=== PATIENT | female | born 1950 | race Caucasian/White ===

== ENCOUNTER 2016-02-26 10:13 | Inpatient (IN) | payer OTHER ==
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
[2016-02-21 09:57] VITALS: BMI 22.3
[2016-02-26] MEDS ORDERED: ceFAZolin SODIUM 1 GM VIAL ONE (11:30)
[2016-02-26] MEDS ORDERED: GENTAMICIN SO4 80 MG/2 ML VIAL ONE (11:30)
[2016-02-26] MEDS ORDERED: PNEUMOC 13-VAL CONJ-DIP CRM/PF 0.5 ML DISP.SYRIN IM ONE (11:42)
[2016-02-26] MEDS ORDERED: INFLUENZA VACCINE 45 MCG/0.5 ML (MDV 16-17) IM ONE (11:43)
[2016-02-26] MEDS ORDERED: ISOSULFAN BLUE 10 MG/ML VIAL SQ ONE (12:02)
[2016-02-26] MEDS ORDERED: PROPOFOL 20 ML ONE ×2 (13:30)
[2016-02-26] MEDS ORDERED: MIDAZOLAM HCL 2 MG/2 ML SINGLE DOSE VIAL ONE ×2 (13:30→13:35)
[2016-02-26] MEDS ORDERED: ROCURONIUM BROMIDE 50 MG/5 ML VIAL ONE (13:31)
[2016-02-26] MEDS ORDERED: BUPIVACAINE HCL/PF 0.5% (5MG/ML) 10 ML VIAL ONE ×2 (13:37→13:42)
[2016-02-26] MEDS ORDERED: DEXAMETHASONE SOD PHOSPHATE/PF 10 MG/ML SDV ONE (13:44)
[2016-02-26] MEDS ORDERED: ePHEDrine SULFATE 50 MG/1 ML AMPULE ONE (14:34)
[2016-02-26] MEDS ORDERED: LACTATED RINGERS SOLUTION 1,000 ML IV SCH (14:45)
[2016-02-26] MEDS ORDERED: HYDROmorphone *PCA* 10MG/50ML DISP.SYRIN PCA SCH (14:45)
[2016-02-26] MEDS ORDERED: PROMETHAZINE HCL 25 MG/1 ML VIAL IVPUSH PRN (14:49)
[2016-02-26] MEDS ORDERED: ONDANSETRON 4 MG/2 ML VIAL IVPUSH PRN (14:50)
[2016-02-26] MEDS ORDERED: HYDROmorphone HCL/PF 1 MG/ML VIAL (FOR PYXIS CHARGING ONLY) ONE (14:56)
[2016-02-26] MEDS ORDERED: ONDANSETRON 4 MG/2 ML VIAL IVPB PRN (15:47)
[2016-02-26] MEDS ORDERED: ACETAMINOPHEN 325 MG TABLET (FP) PO PRN (15:47)
[2016-02-26] MEDS ORDERED: ZOLPIDEM TARTRATE 5 MG TABLET PO PRN (15:47)
[2016-02-26] MEDS ORDERED: DEXTROSE 5%-0.45% SALINE 1,000 ML IV SCH (16:00)
[2016-02-26] MEDS ORDERED: GLIMEPIRIDE 4 MG TABLET (FP) PO SCH (16:30)
[2016-02-26] MEDS ORDERED: ONDANSETRON 4 MG/2 ML VIAL ONE (17:03)
--- NOTE | 2016-02-26 18:05 | PN ---
Progress Note (short form) - Note Progress Note: VSS AF No collections Dressngs CDI plan is for ambulation tonight Incentive spirometer
[2016-02-26] MEDS ORDERED: HYDROmorphone *PCA* 10MG/50ML DISP.SYRIN PCA ONE (18:08)
[2016-02-26] MEDS: INSULIN (NOVOLOG) ASPART 100 UNITS/ML 10ML VIAL SQ ONE ×2 (18:15→20:30)
[2016-02-26] MEDS ORDERED: INSULIN (NOVOLOG) ASPART 100 UNITS/ML 10ML VIAL SQ ONE (18:30)
--- NOTE | 2016-02-26 18:37 | OP ---
DATE OF OPERATION: 02/26/2016 PREOPERATIVE DIAGNOSIS: Right breast cancer. POSTOPERATIVE DIAGNOSIS: Right breast cancer. PROCEDURE: Right modified radical mastectomy with sentinel node biopsy. ANESTHESIA: General intubated. ATTENDING SURGEON: Agatha Tsang M.D. CREDIT RATING INSPECTOR: Carroll Milner ESTIMATED BLOOD LOSS: 150 mL. COMPLICATIONS: None. PROCEDURE: Patient was made aware of the risks and benefits of the procedure and consented. She was placed in the supine position and after general anesthesia was induced, the patient was intubated. 3.0 mL of 1% isosulfan blue were locally infiltrated into the peritumoral tissues of the right breast, after site was prepped and draped in the usual sterile fashion, waiting approximately 10 minutes with gentle manual compression. A curvilinear incision was made in the right axilla. Using blunt and sharp dissection, tissues were dissected down, where a cluster of blue lymph nodes were identified and surgically excised. Frozen section report is 1 lymph node showed evidence of metastasis. An oval incision was made around the nipple using electrocautery. Skin flaps were made superior to the clavicle, medial to the sternum, lateral to latissimus dorsi, inferior to inframammary fold. Breast tissue was taken off the pectoralis muscle, extended laterally to the latissimus dorsi. Breast was then submitted with short suture superior, long suture lateral. The field was then dissected. The fascia was divided, exposing the axillary vein along the chest wall. The long thoracic nerve was identified and retracted medially. Laterally the thoracodorsal nerve was identified and retracted laterally, and the tissues between the two were bluntly and sharply dissected free with hemoclips on nerves and vessels. This was submitted as axillary contents. Palpation of the rest of the axilla revealed no suspicious lymph nodes and especially in level 3. The procedure was then turned over to Dr. Philippe Landrum, who did an produce specialist implant reconstruction. He will dictate his portion of the procedure separately. AGATHA TSANG M.D. [id number]
[2016-02-26] MEDS ORDERED: SODIUM CHLORIDE 1,000 ML IV STA (20:24)
--- NOTE | 2016-02-26 20:35 | ED.PROV ---
Physicial Exam - Vital Signs Last Vital Signs Temp Pulse Resp BP Pulse Ox 98.9 F 127 H 13 128/60 99 02/26/16 19:25 02/26/16 19:25 02/26/16 19:25 02/26/16 19:25 02/26/16 19:25 Critical Care Time/MDM Note - Medical Decision Making Note: 02/26/16 20:28 Called to see patient because of Tachycardia- Patient had mastectomy earlier today. Patient has no complaints except for rib pain where she had the mastectomy. EKG shows a pre-excitation syndrome delta wave- but looks like sinus tach to me. Other post surgical parameters explored with nursing staff. Duplex of lower extremities is negative for DVT. Spoke with Dr. Landrum ----> Ordered CBC, CHEMISTRIES, CTA CHEST, and one liter of NS IV Bolus. He is aware of all of the above.
[2016-02-26 20:48] LABS: MCH 24.8 pg (25.7-33.7); MCHC 32.3 g/dl (32.0-36.0); MEAN CELL VOLUME 76.6 fl (80-96); MEAN PLT VOLUME 8.6 fl (7.5-11.1); PLATELET COUNT 350 K/MM3 (134-434); RDW 17.5 % (11.6-15.6)
[2016-02-26 21:02] LABS: ALBUMIN 3.9 g/dl (3.5-5.0); ALK PHOS 124 U/L (32-92); ANION GAP 7 (8-16); BILIRUBIN,TOTAL 0.4 mg/dl (0.2-1.0); CALCIUM 8.8 mg/dl (8.4-10.2); CO2 21 mmol/L (22-28); CREATININE 0.6 mg/dl (0.6-1.3); GLUCOSE,RANDOM 275 mg/dl (74-106); TOT PROT 7.8 g/dl (6.4-8.3)
--- NOTE | 2016-02-26 21:33 | CONSULT ---
Consultation: REQUESTING PROVIDER: Dr. Landrum CONSULT REQUEST: We have been asked to medically evaluate this patient for tachycardia and DM. HISTORY OF PRESENT ILLNESS: This is a 65 year old female with a past medical history of HTN, DM, depression , appendectomy, cholecystectomy, , tonsilletomy, placenta previa who presented today for R mastectomy with sentinal node biopsy d/t Breast cancer. As per nursing forklift supervisor, pt was noted to be tachycardic during the procedure which has persisted throughout her recovery despite fluid resuscitation. Received 3L IVF as per PACU nurse and has 4th running at present as per orders from ED MD who came to evaluate the patient as well. Pt is groggy, but arousable and answers questions. C/o pain right ribs and chest surgical areas. Denies other chest pain, abdominal pain, N/V/D. 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 \ social history: smoke: 1ppd, quit 2 days ago drink: special occasions only drugs: pt denies Family history: father , prostate CA mother , heart problem sister with osteoporosis daughter denies any family history of uterine or ovarian CA, states mother had gotten confused when asked previously. Home medications: glimepiride 8mg QD glucophage 1000mg BID tradjenta 5mg QD Restoril 15mg HS Citalopram 10mg QD Avapro 150mg QD MVI REVIEW OF SYSTEMS: CONSTITUTIONAL: Absent: fever, chills, diaphoresis, generalized weakness, malaise, loss of appetite, weight change HEENT: Absent: rhinorrhea, nasal congestion, throat pain, throat swelling, difficulty swallowing, mouth swelling, ear pain, eye pain, visual changes CARDIOVASCULAR: present: tachycardia, right sided incisional chest pain, right lower rib pain Absent: chest pain, syncope, palpitations, irregular heart rate, lightheadedness , peripheral edema RESPIRATORY: Absent: cough, shortness of breath, dyspnea with exertion, orthopnea, wheezing, stridor, hemoptysis GASTROINTESTINAL: Absent: abdominal pain, abdominal distension, nausea, vomiting, diarrhea, constipation, melena, hematochezia GENITOURINARY: Absent: dysuria, frequency, urgency, hesitancy, hematuria, flank pain, genital pain MUSCULOSKELETAL: Absent: myalgia, arthralgia, joint swelling, back pain, neck pain SKIN: Absent: rash, itching, pallor HEMATOLOGIC/IMMUNOLOGIC: Absent: easy bleeding, easy bruising, lymphadenopathy, frequent infections ENDOCRINE: Absent: unexplained weight gain, unexplained weight loss, heat intolerance, cold intolerance NEUROLOGIC: Absent: headache, focal weakness or paresthesias, dizziness, unsteady gait, seizure, mental status changes, bladder or bowel incontinence PSYCHIATRIC: Absent: anxiety, depression, suicidal or homicidal ideation, hallucinations. PHYSICAL EXAMINATION Vital Signs - 24 hr 3 02/26/16 02/26/16 02/26/16 11:21 17:35 17:40 Temperature 98.4 F 98.9 F Pulse Rate 96 H 137 H 132 H Respiratory 18 16 16 Rate Blood Pressure 109/81 121/69 120/67 O2 Sat by Pulse 96 97 98 Oximetry (%) 02/26/16 02/26/16 02/26/16 17:45 17:50 17:55 Temperature 98.9 F Pulse Rate 131 H 134 H 131 H Respiratory 14 13 13 Rate Blood Pressure 118/62 123/74 109/70 O2 Sat by Pulse 99 100 99 Oximetry (%) 02/26/16 02/26/16 02/26/16 18:10 18:25 18:40 Temperature Pulse Rate 138 H 127 H 128 H Respiratory 12 13 14 Rate Blood Pressure 122/72 109/65 106/64 O2 Sat by Pulse 99 99 99 Oximetry (%) 02/26/16 02/26/16 02/26/16 18:55 19:10 19:25 Temperature 98.9 F 98.9 F Pulse Rate 124 H 126 H 127 H Respiratory 14 13 13 Rate Blood Pressure 111/62 109/69 128/60 O2 Sat by Pulse 100 98 99 Oximetry (%) 02/26/16 02/26/16 02/26/16 19:30 19:45 20:00 Temperature Pulse Rate 128 H 129 H 129 H Respiratory 14 15 14 Rate Blood Pressure 108/60 106/73 116/65 O2 Sat by Pulse 100 100 100 Oximetry (%) 02/26/16 02/26/16 02/26/16 20:15 20:30 20:45 Temperature Pulse Rate 130 H 124 H 126 H Respiratory 12 14 14 Rate Blood Pressure 107/67 109/71 105/66 O2 Sat by Pulse 98 100 100 Oximetry (%) 3 02/26/16 02/26/16 02/26/16 21:00 21:15 21:30 Temperature 98.9 F Pulse Rate 125 H 125 H 125 H Respiratory 14 14 14 Rate Blood Pressure 101/59 107/66 109/70 O2 Sat by Pulse 100 100 100 Oximetry (%) GENERAL: Awake, alert, and fully oriented, in no acute distress. HEAD: Normal with no signs of trauma. EYES: Pupils equal, round and reactive to light, extraocular movements intact, sclera anicteric, conjunctiva clear. No lid lag. EARS, NOSE, THROAT: Ears normal, nares patent, oropharynx clear without exudates. Moist mucous membranes. NECK: Normal range of motion, supple without lymphadenopathy, JVD, or masses. LUNGS: Breath sounds equal, clear to auscultation bilaterally. No wheezes, and no crackles. No accessory muscle use. HEART: Regular rate and rhythm, normal S1 and S2 without murmur, rub or gallop. ABDOMEN: Soft, nontender, not distended, normoactive bowel sounds, no guarding, no rebound, no masses. No hepatomegaly or splenomegaly. MUSCULOSKELETAL: Normal range of motion at all joints. No bony deformities or tenderness. No CVA tenderness. UPPER EXTREMITIES: 2+ pulses, warm, well-perfused. No cyanosis. No clubbing. Cap refill <2 seconds. No peripheral edema. LOWER EXTREMITIES: 2+ pulses, warm, well-perfused. No calf tenderness. No peripheral edema. NEUROLOGICAL: Cranial nerves II-XII intact. Normal speech. Normal gait. PSYCHIATRIC: Cooperative. Good eye contact. Appropriate mood and affect. SKIN: Warm, dry, normal turgor, no rashes or lesions noted. Laboratory Results - last 24 hr 3 02/26/16 02/26/16 02/26/16 11:47 17:58 19:43 WBC RBC Hgb Hct MCV MCHC RDW Plt Count MPV Sodium Potassium Chloride Carbon Dioxide Anion Gap BUN Creatinine Creat Clearance w eGFR POC Glucometer 145 282 260 Random Glucose Calcium Total Bilirubin AST ALT Alkaline Phosphatase Total Protein Albumin Active Medications 3 Generic Name Dose Route Start Last Admin Trade Name Freq PRN Reason Stop Dose Admin Acetaminophen 650 mg 02/26/16 15:47 Tylenol - PO Q4H PRN FEVER Alprazolam 0.5 mg 02/27/16 10:00 Xanax - PO DAILY [facility] Citalopram Hydrobromide 20 mg 02/27/16 10:00 Celexa - PO DAILY [facility] Fentanyl 50 mcg 02/26/16 14:43 Sublimaze Injection - IVPUSH 02/29/16 14:44 [id number] PRN PAIN Ferrous Gluconate 324 mg 02/27/16 10:00 Fergon - PO DAILY [facility] Glimepiride 4 mg 02/26/16 16:30 Amaryl - PO ACDIN [facility] Heparin Sodium (Porcine) 5,000 unit 02/27/16 10:00 Heparin - SQ BID [facility] Hydromorphone HCl 10 mg 02/26/16 14:45 Dilaudid Premises Technician - MOLDING LINE OPERATOR 03/04/16 14:44 MOLDING LINE OPERATOR [facility] Protocol Cefazolin Sodium 50 mls @ 100 mls/hr 02/26/16 21:00 Ancef 1 Gm Premixed Ivpb - IVPB 03/04/16 20:59 Q6H-IV [facility] Influenza Virus Vaccine 45 mcg 02/26/16 11:43 Fluvirin IM 02/26/16 11:44 .ONCE ONE Insulin Aspart 1 vial 02/26/16 22:00 Novolog Vial Sliding Scale - SQ ACHS [facility] Protocol Losartan Potassium 50 mg 02/27/16 10:00 Cozaar - PO DAILY [facility] Ondansetron HCl 4 mg 02/26/16 15:47 Zofran Injection IVPB Q6H PRN NAUSEA AND/OR VOMITING Pantoprazole Sodium 20 mg 02/27/16 10:00 Protonix - PO DAILY [facility] Pneumococcal 13-Valent Conj Vacc 0.5 ml 02/26/16 11:42 Prevnar 13 Syringe - IM 02/26/16 11:43 .ONCE ONE Zolpidem Tartrate 5 mg 02/26/16 15:47 Ambien - PO HS PRN Insomnia ECG: sinus tachy, rate 139, nonspecific St/T wave changes. no acute ANJALI/STD ASSESSMENT/PLAN: 65yF with PMH HTN, DM, Depression who is s/p mastectomy today, being evaluated for tachycardia and elevated BS. Sinus tachycardia - Will obtain CTA to r/o PE, B/L Doppler negative - stat labs ordered - NS 1L bolus ordered and in progress. Diabetes - hold po metformin, pt going for CT with contrast - FSBS q4h with sliding scale novolog, decrease to TIDAC when alert and eating and FSBS improved. HTN - hold avapro for now as BP low Depression - cont lexapro DVT PPX - cont heparin 5000u BID as ordered FEN - NS liter infusing, then reassess - labs now - NPO except meds and ice chips. Dispo: We will continue to follow the patient. Thank you for this consultative opportunity. Addendum: 1030PM Labs received: Laboratory Results - last 24 hr 3 02/26/16 02/26/16 20:40 20:40 WBC 20.0 H D RBC 4.27 Hgb 10.6 L Hct 32.7 MCV 76.6 L MCHC 32.3 RDW 17.5 H Plt Count 350 MPV 8.6 Sodium 131 L Potassium 3.9 Chloride 103 Carbon Dioxide 21 L Anion Gap 7 L BUN 14 Creatinine 0.6 D Creat Clearance w eGFR > 60 POC Glucometer Random Glucose 275 H D Calcium 8.8 Total Bilirubin 0.4 AST 584 H D ALT 380 H D Alkaline Phosphatase 124 H D Total Protein 7.8 Albumin 3.9 Discussed lab results with Dr. Landrum (surgeon) and Dr. Mendoza (ED physician) . Significant elevation of LFTs from preop labs on 02/20: AST 22, ALT 44, Alk Phos 80. Will obtain stat abdominal sono with doppler. GI consult in AM. Dressing removed from R chest area: no obvious hematoma or active bleeding. Incision right chest with ecchymosis, but no significant induration. Incision right axilla C/D/I, no iduration. Still awaiting CT chest results. Urine output 150 since DC from OR. Total urine output 350 including output during surgery. Urine color now human performance technologist blue/green. HR down to 116. WBC postop is 20. unclear etiology, reactive vs brewing infectious process. Afebrile, cont to monitor for now Will repeat all labs now and lactic acid, CK/trop. Visit type - Emergency Visit Emergency Visit: Yes ED Registration Date: 02/26/16 Care time: The patient presented to the Emergency Department on the above date and was hospitalized for further evaluation of their emergent condition. - New Patient This patient is new to me today: Yes Date on this admission: 02/26/16 - Critical Care Critical Care patient: No
[2016-02-26 21:48] LABS: SGOT/AST 584 U/L (10-42)
[2016-02-26 21:49] LABS: SGPT/ALT 380 U/L (10-40)
[2016-02-26] MEDS ORDERED: INSULIN SLIDING SCALE (NOVOLOG) 1 VIAL SQ SCH (22:00)
[2016-02-26] MEDS ORDERED: SODIUM CHLORIDE 1,000 ML IV SCH (23:15)
[2016-02-26 23:28] LABS: BASOPHIL 3.1 % (0-2.0); MCH 24.2 pg (25.7-33.7); MCHC 31.3 g/dl (32.0-36.0); MEAN CELL VOLUME 77.4 fl (80-96); MEAN PLT VOLUME 8.7 fl (7.5-11.1); NEUTROPHILS 88.9 % (42.8-82.8); PLATELET COUNT 316 K/MM3 (134-434); RDW 17.2 % (11.6-15.6); WHITE BLOOD COUNT 17.2 K/mm3 (4.0-10.0)
[2016-02-26 23:40] LABS: ALBUMIN 3.5 g/dl (3.5-5.0); ALK PHOS 108 U/L (32-92); ANION GAP 5 (8-16); BILIRUBIN,TOTAL 0.4 mg/dl (0.2-1.0); CALCIUM 8.1 mg/dl (8.4-10.2); CO2 22 mmol/L (22-28); CREATININE 0.5 mg/dl (0.6-1.3); GLUCOSE,RANDOM 217 mg/dl (74-106); MAGNESIUM 1.5 mg/dL (1.8-2.4); PHOSPHOROUS 5.1 mg/dl (2.5-4.6); SGPT/ALT 330 U/L (10-40)
[2016-02-26 23:40] LABS: CPK(DFH) 620 IU/L (26-140)
[2016-02-26 23:53] LABS: SGOT/AST 420 U/L (10-42)
[2016-02-26 23:56] LABS: CK MB 3.9 ng/ml (0.3-4.0); TROPONIN I (DFP) < 0.03 ng/ml (0.03-0.50)
[2016-02-27] MEDS ORDERED: INSULIN SLIDING SCALE (NOVOLOG) 1 VIAL SQ SCH
[2016-02-27] MEDS ORDERED: SODIUM CHLORIDE 1,000 ML IV STA ×2 (01:15→12:48)
[2016-02-27] MEDS: CEFAZOLIN 1 GM/D5W 50 ML IVPB SCH ×4 (02:14→21:42)
[2016-02-27] MEDS ORDERED: SODIUM CHLORIDE 250 ML IV STA ×2 (06:24→12:48)
--- NOTE | 2016-02-27 07:33 | PN ---
Physical Exam: SUBJECTIVE: Patient seen and examined, patient reports pain to surgical site. patient denies any chest pain or shortness of breath. OBJECTIVE: This is a 65 year old female with a past medical history of HTN, DM, depression, appendectomy, cholecystectomy, , tonsilletomy, placenta previa who presented today for R mastectomy with sentinal node biopsy d/t Breast cancer. Patient developed tachycardia and hypotension on post operative day 1 Vital Signs Period Temp Pulse Resp BP Sys/Issa Pulse Ox Last 24 Hr 98.1 F-98.9 F 76-138 12-19 84-128/50-81 96-100 GENERAL: The patient is lethargic, arousable to voice, fully oriented HEAD: Normal with no signs of trauma. EYES: PERRL, extraocular movements intact, sclera anicteric, conjunctiva clear. No ptosis. ENT: Ears normal, nares patent, oropharynx clear without exudates, moist mucous membranes. NECK: Trachea midline, full range of motion, supple. LUNGS: Breath sounds equal, clear to auscultation bilaterally, no wheezes, no crackles, no accessory muscle use. HEART: Regular rate and rhythm, S1, S2 systolic 2/6 murmur no rub or gallop. CHEST: binder in place, IRVNIG 1, JP2 both draining serrous sangenous fluid, surgical sites, well approximated, no drainage noted, minimal erythema ABDOMEN: Soft, nontender, nondistended, normoactive bowel sounds, no guarding, no rebound, no hepatosplenomegaly, no masses, EXTREMITIES: 2+ pulses, warm, well-perfused, no edema. NEUROLOGICAL: Cranial nerves II through XII grossly intact. Normal speech, gait not observed. PSYCH: Normal mood, normal affect. SKIN: Warm, dry, normal turgor, no rashes or lesions noted Laboratory Results - last 24 hr 02/26/16 02/26/16 02/26/16 11:47 17:58 19:43 WBC RBC Hgb Hct MCV MCHC RDW Plt Count MPV Neutrophils % Lymphocytes % Monocytes % Eosinophils % Basophils % Sodium Potassium Chloride Carbon Dioxide Anion Gap BUN Creatinine Creat Clearance w eGFR POC Glucometer 145 282 260 Random Glucose Lactic Acid Calcium Phosphorus Magnesium Total Bilirubin AST ALT Alkaline Phosphatase Creatine Kinase CK-MB (CK-2) Troponin I Total Protein Albumin 02/26/16 02/26/16 02/26/16 20:40 20:40 22:37 WBC 20.0 H D RBC 4.27 Hgb 10.6 L Hct 32.7 MCV 76.6 L MCHC 32.3 RDW 17.5 H Plt Count 350 MPV 8.6 Neutrophils % Lymphocytes % Monocytes % Eosinophils % Basophils % Sodium 131 L 131 L Potassium 3.9 4.3 Chloride 103 104 Carbon Dioxide 21 L 22 Anion Gap 7 L 5 L BUN 14 13 Creatinine 0.6 D 0.5 L Creat Clearance w eGFR > 60 > 60 POC Glucometer Random Glucose 275 H D 217 H D Lactic Acid Calcium 8.8 8.1 L Phosphorus 5.1 H Magnesium 1.5 L Total Bilirubin 0.4 0.4 AST 584 H D 420 H D ALT 380 H D 330 H Alkaline Phosphatase 124 H D 108 H Creatine Kinase CK-MB (CK-2) Troponin I Total Protein 7.8 7.0 Albumin 3.9 3.5 02/26/16 02/26/16 02/26/16 23:15 23:15 23:15 WBC 17.2 H RBC 3.91 Hgb 9.5 L D Hct 30.2 L MCV 77.4 L MCHC 31.3 L RDW 17.2 H Plt Count 316 MPV 8.7 Neutrophils % 88.9 H Lymphocytes % 3.4 L Monocytes % 4.6 Eosinophils % 0.0 Basophils % 3.1 H Sodium Potassium Chloride Carbon Dioxide Anion Gap BUN Creatinine Creat Clearance w eGFR POC Glucometer Random Glucose Lactic Acid 3.003 H* Calcium Phosphorus Magnesium Total Bilirubin AST ALT Alkaline Phosphatase Creatine Kinase 620 H CK-MB (CK-2) 3.9 Troponin I < 0.03 L Total Protein Albumin 02/27/16 02/27/16 00:14 04:03 WBC RBC Hgb Hct MCV MCHC RDW Plt Count MPV Neutrophils % Lymphocytes % Monocytes % Eosinophils % Basophils % Sodium Potassium Chloride Carbon Dioxide Anion Gap BUN Creatinine Creat Clearance w eGFR POC Glucometer 231 200 Random Glucose Lactic Acid Calcium Phosphorus Magnesium Total Bilirubin AST ALT Alkaline Phosphatase Creatine Kinase CK-MB (CK-2) Troponin I Total Protein Albumin Active Medications Generic Name Dose Route Start Last Admin Trade Name Freq PRN Reason Stop Dose Admin Citalopram Hydrobromide 20 mg 02/27/16 10:00 Celexa - PO DAILY [facility] Fentanyl 50 mcg 02/26/16 14:43 Sublimaze Injection - IVPUSH 02/29/16 14:44 [id number] PRN PAIN Ferrous Gluconate 324 mg 02/27/16 10:00 Fergon - PO DAILY [facility] Heparin Sodium (Porcine) 5,000 unit 02/27/16 10:00 Heparin - SQ BID [facility] Hydromorphone HCl 10 mg 02/26/16 14:45 Dilaudid Metal Bonding Helper - SHOE CLERK 03/04/16 14:44 SHOE CLERK [facility] Protocol Cefazolin Sodium 50 mls @ 100 mls/hr 02/26/16 21:00 02/27/16 02:14 Ancef 1 Gm Premixed Ivpb - IVPB 03/04/16 20:59 100 mls/hr Q6H-IV [facility] Administration Sodium Chloride 1,000 mls @ 125 mls/hr 02/26/16 23:15 02/26/16 23:40 Normal Saline - IV 125 mls/hr ASDIR [facility] Administration Influenza Virus Vaccine 45 mcg 02/26/16 11:43 Fluvirin IM 02/26/16 11:44 .ONCE ONE Insulin Aspart 1 vial 02/27/16 00:00 02/27/16 02:19 Novolog Vial Sliding Scale - SQ 3 units Q4H [facility] Administration Protocol Losartan Potassium 50 mg 02/27/16 10:00 Cozaar - PO DAILY [facility] Ondansetron HCl 4 mg 02/26/16 15:47 Zofran Injection IVPB Q6H PRN NAUSEA AND/OR VOMITING Pantoprazole Sodium 20 mg 02/27/16 10:00 Protonix - PO DAILY [facility] Pneumococcal 13-Valent Conj Vacc 0.5 ml 02/26/16 11:42 Prevnar 13 Syringe - IM 02/26/16 11:43 .ONCE ONE Zolpidem Tartrate 5 mg 02/26/16 15:47 Ambien - PO HS PRN Insomnia IMAGING CTA of chest: no PE, mild lung emphysema with bibasilar atelaectatic changes, left pleural effusion ASSESSMENT/PLAN: 1) cardiology: hypotension - ED Physician, Dr Coley called and at bedside, for TLC placement, 1 liter of NS ordered, Dr Cervantes contacted, pt accepted to ICU. - repeat cxr pulmonary vascular congestion, ECHO ordered, pending BNP - recommend cardiology input 2) heme: microcytic anemia - hgb 8, pending am labs, recommend transfusion if hgb 7 or less leukocytosis - pt afebrile monitor wbc, follow up blood and urine culture - continue cefazolin 3) endo - finger sticks achs, with regular insulin coverage 4) GI - transanimitis noted, benign abdominal exam, LFTS trending downward - ultrasound of abd no acute pathology noted - pending hepatitis panel f/e/n - low sodium diet - IVF ppx heparin scd/[place] dispo: requires Inpatient ICU thank you for this consultative opportunity. Visit type - Emergency Visit Emergency Visit: No - New Patient This patient is new to me today: Yes Date on this admission: 02/27/16 - Critical Care Critical Care patient: Yes Total Critical Care Time (in minutes): 60 Critical Care Statement: The care of this patient involved high complexity decision making to prevent further life threatening deterioration of the patient 's condition and/or to evalute & treat vital organ system(s) failure or risk of failure. - Discharge Referral Referred to [facility] Med P.C.: No
--- NOTE | 2016-02-27 08:04 | PN ---
Progress Note (short form) - Note Progress Note: POD 1 patient developed persistent tachycardia without hypoxia or tachypnea or chest pain Patient was given 4 L saline overnight with adequate UOP ruled out for [place], no ischemic changes on CT ruled out for PE and DVT Transaminase elevation: liver sono nl, bili normal, s/p cholecystectomy Exam: no hematoma, all tissues viable, no collection, no infection, IRVING's thin and functioning well Abd soft and benign lungs CTA Plan for continued fluid recussitation and monitor UOP Central line Transfer to ICU, cardiology consult, consider swan catheter continue to monitor labs
[2016-02-27 08:16] LABS: TROPONIN I < 0.02 ng/ml (0.00-0.05)
--- NOTE | 2016-02-27 09:10 | PDOC ---
[id number] 97 02/27/16 06:00 02/27/16 06:00 02/27/16 06:00 02/27/16 06:00 02/27/16 02:07 ED Treatment Course - LABORATORY CBC & Chemistry Diagram: 02/27/16 16:00 02/27/16 06:45 - ADDITIONAL ORDERS Additional order review: Laboratory Results 02/27/16 02/27/16 02/27/16 06:45 06:45 06:45 Sodium Potassium Chloride Carbon Dioxide Anion Gap BUN Creatinine Creat Clearance w eGFR POC Glucometer Random Glucose Lactic Acid 1.397 Calcium Phosphorus Magnesium Total Bilirubin AST ALT Alkaline Phosphatase Creatine Kinase Cancelled 672 H D CK-MB (CK-2) 6.931 H Troponin I Cancelled < 0.02 Total Protein Albumin 02/27/16 02/27/16 02/26/16 04:03 00:14 23:15 Sodium Potassium Chloride Carbon Dioxide Anion Gap BUN Creatinine Creat Clearance w eGFR POC Glucometer 200 231 Random Glucose Lactic Acid Calcium Phosphorus Magnesium Total Bilirubin AST ALT Alkaline Phosphatase Creatine Kinase 620 H CK-MB (CK-2) 3.9 Troponin I < 0.03 L Total Protein Albumin 02/26/16 02/26/16 02/26/16 23:15 22:37 20:40 Sodium 131 L 131 L Potassium 4.3 3.9 Chloride 104 103 Carbon Dioxide 22 21 L Anion Gap 5 L 7 L BUN 13 14 Creatinine 0.5 L 0.6 D Creat Clearance w eGFR > 60 > 60 POC Glucometer Random Glucose 217 H D 275 H D Lactic Acid 3.003 H* Calcium 8.1 L 8.8 Phosphorus 5.1 H Magnesium 1.5 L Total Bilirubin 0.4 0.4 AST 420 H D 584 H D ALT 330 H 380 H D Alkaline Phosphatase 108 H 124 H D Creatine Kinase CK-MB (CK-2) Troponin I Total Protein 7.0 7.8 Albumin 3.5 3.9 02/27/16 02/27/16 02/26/16 04:03 00:14 23:15 RBC 3.91 MCV 77.4 L MCHC 31.3 L RDW 17.2 H MPV 8.7 Neutrophils % 88.9 H Lymphocytes % 3.4 L Monocytes % 4.6 Eosinophils % 0.0 Basophils % 3.1 H POC Glucometer 200 231 0102/26/16 02/26/16 20:40 19:43 17:58 RBC 4.27 MCV 76.6 L MCHC 32.3 RDW 17.5 H MPV 8.6 Neutrophils % Lymphocytes % Monocytes % Eosinophils % Basophils % POC Glucometer 260 282 02/26/16 11:47 RBC MCV MCHC RDW MPV Neutrophils % Lymphocytes % Monocytes % Eosinophils % Basophils % POC Glucometer 145 - Medications Given in the ED: ED Medications Discontinued Medications Generic Name Dose Route Start Last Admin Trade Name Freq PRN Reason Stop Dose Admin Sodium Chloride 1,000 mls @ 500 mls/hr 02/27/16 01:15 02/27/16 01:30 Normal Saline - IV 02/27/16 03:14 500 mls/hr ASDIR STA Administration *DC/Admit/Observation/Transfer Diagnosis at time of Disposition: Breast cancer, right breast Qualifiers: Breast location: overlapping sites of breast Patient gender: female Qualified Code(s): C50.811 - Malignant neoplasm of overlapping sites of right female breast Procedures - Central Line Central Line Lumen: triple Central Line Position: internal jugular (R) Anesthesia: 1% Lidocaine Amount of anesthesia (ccs): 3 Complications: none Post Central Line Insertion: sutured, good blood return, position confirmed w/ CXR (Indication: vasopressor use. Vascular ultrasound used for central line placement. Patient tolerated procedure well.)
[2016-02-27 09:17] LABS: BASOPHIL 0.3 % (0-2.0); MCH 23.9 pg (25.7-33.7); MCHC 30.8 g/dl (32.0-36.0); MEAN CELL VOLUME 77.6 fl (80-96); MEAN PLT VOLUME 9.6 fl (7.5-11.1); NEUTROPHILS 75.5 % (42.8-82.8); PLATELET COUNT 241 K/MM3 (134-434); RDW 17.5 % (11.6-15.6); WHITE BLOOD COUNT 13.9 K/mm3 (4.0-10.0)
--- NOTE | 2016-02-27 09:17 | PN ---
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 Patient received approx 4 liters of fluid with adequate urinary output. Patient had a negative workup for PE and liver scan was done for increasing LFTs. Her cxr is c/w pulmonary congestion. A central line was placed. Otherwise, patient has good pain control and is not in any distress. - Current Medication List Current Medications: Active Medications Citalopram Hydrobromide (Celexa -) 20 mg PO DAILY [facility] Fentanyl (Sublimaze Injection -) 50 mcg IVPUSH [id number] PRN PRN Reason: PAIN Stop: 02/29/16 14:44 Ferrous Gluconate (Fergon -) 324 mg PO DAILY [facility] Heparin Sodium (Porcine) (Heparin -) 5,000 unit SQ BID [facility] Cefazolin Sodium (Ancef 1 Gm Premixed Ivpb -) 50 mls @ 100 mls/hr IVPB Q6H-IV [facility] Stop: 03/04/16 20:59 Last Admin: 02/27/16 08:56 Dose: 100 mls/hr Sodium Chloride (Normal Saline -) 1,000 mls @ 125 mls/hr IV ASDIR AUGIE Last Admin: 02/26/16 23:40 Dose: 125 mls/hr Insulin Aspart (Novolog Vial Sliding Scale -) 1 vial SQ Q4H [facility] PRN Reason: Protocol Last Admin: 02/27/16 02:19 Dose: 3 units Ondansetron HCl (Zofran Injection) 4 mg IVPB Q6H PRN PRN Reason: NAUSEA AND/OR VOMITING Pantoprazole Sodium (Protonix -) 20 mg PO DAILY [facility] Zolpidem Tartrate (Ambien -) 5 mg PO HS PRN PRN Reason: Insomnia - Objective Vital Signs: Vital Signs Temperature 98.1 F 02/27/16 06:00 Pulse Rate 76 02/27/16 06:00 Respiratory Rate 19 02/27/16 06:00 Blood Pressure 84/50 02/27/16 06:00 O2 Sat by Pulse Oximetry (%) 97 02/27/16 02:07 Constitutional: Yes: Calm Breast(s): Yes: Other (Flap with good color. No evidence of active bleeding noted in the JPs.) Problem List - Problems (1) Breast cancer, right breast Code(s): C50.911 - MALIGNANT NEOPLASM OF UNSP SITE OF RIGHT FEMALE BREAST Qualifiers: Breast location: overlapping sites of breast Patient gender: female Qualified Code(s): C50.811 - Malignant neoplasm of overlapping sites of right female breast Assessment/Plan Patient to be transferred to ICU as discussed with Dr. Tsang and Dr. Landrum. Medical and cardiology consult requested Cardiac echo to be done Monitor LFTs and WBC Will follow Case also discussed with Dr. Gordon
[2016-02-27 09:23] LABS: INR 1.21 (0.82-1.09); PROTHROMBIN TIME (PATIENT) 13.2 SEC (10.2-13.0)
[2016-02-27 09:36] LABS: MAGNESIUM 1.7 mg/dL (1.8-2.4)
[2016-02-27] MEDS ORDERED: ALPRAZolam 0.25 MG TABLET PO SCH (10:00)
[2016-02-27] MEDS ORDERED: CITALOPRAM HYDROBROMIDE 20 MG TABLET (FP) PO SCH (10:00)
[2016-02-27] MEDS ORDERED: PANTOPRAZOLE 20 MG TABLET (FP) PO SCH (10:00)
[2016-02-27] MEDS ORDERED: HEPARIN NA (PORCINE) 5,000 UNITS/ML 1ML VIAL SQ SCH (10:00)
[2016-02-27] MEDS ORDERED: FERROUS GLUCONATE 324 MG TAB (FP) PO SCH (10:00)
[2016-02-27] MEDS ORDERED: LOSARTAN POTASSIUM 50 MG TABLET (FP) PO SCH (10:00)
[2016-02-27 11:02] LABS: ALBUMIN 2.9 g/dl (3.4-5.0); ALK PHOS 109 U/L (45-117); ANION GAP 8 (8-16); BILIRUBIN,TOTAL 0.3 mg/dL (0.2-1.0); CALCIUM 7.8 mg/dL (8.5-10.1); CO2 22 mmol/L (21-32); CREATININE 0.5 mg/dL (0.55-1.02); GLUCOSE,RANDOM 116 mg/dL (74-106); SGOT/AST 252 U/L (15-37); SGPT/ALT 298 U/L (12-78); TOT PROT 6.5 g/dl (6.4-8.2)
[2016-02-27] MEDS ORDERED: OXYCODONE/APAP 5/325MG COMBO TABLET PO PRN (11:45)
[2016-02-27] MEDS ORDERED: morphine CARPU-JECT 2 MG/1 ML DISP.SYRIN IVPUSH ONE ×2 (12:00→12:48)
--- NOTE | 2016-02-27 12:28 | PN ---
Teaching Attending Note Name of Resident: De Knight ATTENDING PHYSICIAN STATEMENT I saw and evaluated the patient. I reviewed the resident's note and discussed the case with the resident. I agree with the resident's findings and plan as documented. SUBJECTIVE: Pt seen and examined in the ICU. Briefly, pt is a 65yo female with h/o HTN, DM, depression, breast ca s/p right modified radical mastectomy done on 02/25. No reported complications, EBL 150mL. This AM noted to be hypotensive, tachycardic with altered mental status. CTA chest done without evidence of PE. No fevers, chills or sweats. Received 2L LR intra op, 6L post op so far. IRVING drainage serosanguinous. Denies shortness of breath or chest pain, c/o surgical site pain. OBJECTIVE: Last Vital Signs Temp Pulse Resp BP Pulse Ox 98 F 75 18 82/56 94 L 02/27/16 10:00 02/27/16 11:14 02/27/16 10:00 02/27/16 10:00 02/27/16 11:14 Intake & Output 02/24/16 02/25/16 02/26/16 02/27/16 23:59 23:59 23:59 23:59 Intake Total 4000 2425 Output Total 490 870 Balance 3510 1555 Weight 130 lb Gen: mildly tachypneic at rest Heart: RRR Lung: scattered rhonchi Chest: IRVING x 2 with serosanguinous drainage Abd: soft, nontender Ext: no edema CBC, BMP 02/27/16 08:15 02/27/16 06:45 CXR: pulmonary vascular congestion Active Medications Acetaminophen (Tylenol -) 325 mg PO Q4H PRN PRN Reason: PAIN Stop: 03/01/16 11:46 Citalopram Hydrobromide (Celexa -) 20 mg PO DAILY [facility] Ferrous Gluconate (Fergon -) 324 mg PO DAILY [facility] Cefazolin Sodium (Ancef 1 Gm Premixed Ivpb -) 50 mls @ 100 mls/hr IVPB Q6H-IV [facility] Stop: 03/04/16 20:59 Last Admin: 02/27/16 08:56 Dose: 100 mls/hr Sodium Chloride (Normal Saline -) 1,000 mls @ 125 mls/hr IV ASDIR AUGIE Last Admin: 02/26/16 23:40 Dose: 125 mls/hr Insulin Aspart (Novolog Vial Sliding Scale -) 1 vial SQ ACHS [facility] PRN Reason: Protocol Ondansetron HCl (Zofran Injection) 4 mg IVPB Q6H PRN PRN Reason: NAUSEA AND/OR VOMITING Oxycodone HCl (Roxicodone -) 5 mg PO Q4H PRN PRN Reason: PAIN Pantoprazole Sodium (Protonix -) 20 mg PO DAILY [facility] Zolpidem Tartrate (Ambien -) 5 mg PO HS PRN PRN Reason: Insomnia ASSESSMENT AND PLAN: Breast Ca s/p R Modified Radical Mastectomy POD #1 Shock - ?Septic vs Hemorrhagic/Hypovolemic Lactic Acidosis Elevated LFTs - ?ischemic injury Anemia HTN DM - CVP 11-12 so preload adequate - echocardiogram to evaluate LVEF, RVSP - on antibiotics - send blood, urine cultures - transfuse 1 unit PRBC - monitor H/H - trend LFTs - monitor IRVING drainage - pain control - incentive spirometry - monitor CXR - PO as tolerated - DVT prophylaxis, hold heparin for now - continue ICU monitoring
[2016-02-27] MEDS ORDERED: INSULIN (NOVOLOG) ASPART 100 UNITS/ML 10ML VIAL SQ ONE (12:48)
[2016-02-27] MEDS ORDERED: SODIUM CHLORIDE 1,000 ML IV SCH (12:48)
[2016-02-27 13:22] LABS: URINE APPEARANCE CLEAR; URINE BILIRUBIN NEGATIVE (NEGATIVE); URINE BLOOD NEGATIVE (NEGATIVE); URINE COLOR GREEN; URINE GLUCOSE (UA) NEGATIVE (NEGATIVE); URINE KETONE NEGATIVE (NEGATIVE); URINE LEUK ESTERASE NEGATIVE (NEGATIVE); URINE NITRITE NEGATIVE (NEGATIVE); URINE PROTEIN NEGATIVE (NEGATIVE); URINE UROBILINOGEN NEGATIVE E.U./dl (0.2-1.0)
--- NOTE | 2016-02-27 13:22 | CONSULT ---
Consult Consult Specialty:: ICU Referred by:: Breast Surgery service Reason for Consultation:: POST OP HYPOENSION - History of Present Illness Chief Complaint: hypotension post op History of Present Illness: 65 yo female with PMH of HTN DM GERD anxiety/depression Breast CA POD #1 s/p Right MRM with SLNB presents to the ICU from [place] after she was noted to be hypotensive and tachycardic post op with associated altered mental status. In october she was noted to have a palpable mass and right nipple retraction. Per charts patient underwent a mammography and US which was positive for a 1.5 cm irregular mass and retroareolar dilation. Patient underwent a core bx on 11/2015 that was c/w invasive ductal carcinoma and DCIS. ER and TN positive. Her 2 negative. MRI was c/w known cancer at 11 oclock, inverted nipple and suspicious intramammary lymph nodes. She was noted to be hypotensive and tachycardic on POD #1 and there was a concern for PE. A CTA of the chest was done without evidence of PE. She denies nausea vomiting fevers chills chest pain or shortness of breath. Received 2L LR intra op, 6L post op so far. EBL 150ml IRVING drainage serosanguinous. She currently complains of righ chest pain over wound. - History Source History Provided By: Patient, Medical Record Limitations to Obtaining History: Language Barrier - Past Medical History Cardio/Vascular: Yes: HTN Gastrointestinal: Yes: GERD ...: No Heme/Onc: Yes: Anemia, Cancer (breast CA ) Psych: Yes: Anxiety, Depression Endocrine: Yes: Diabetes Mellitus - Past Surgical History Past Surgical History: Yes: Appendectomy, Cholecystectomy, , Tonsillectomy - Alcohol/Substance Use Hx Alcohol Use: No - Smoking History Smoking history: Current every day smoker Have you smoked in the past 12 months: Yes Aproximately how many cigarettes per day: 20 Home Medications - Allergies Allergies/Adverse Reactions: Allergies Allergy/AdvReac Type Severity Reaction Status Date / Time No Known Allergies Allergy Verified 02/21/16 09:57 - Home Medications Home Medications: Ambulatory Orders Alprazolam 0.5 mg PO DAILY 09/28/12 Ferrous Gluconate [Fergon] 324 mg PO DAILY 09/28/12 Irbesartan [Avapro (Nf)] 150 mg PO DAILY 09/28/12 Omeprazole [Prilosec (RX)] 20 mg PO DAILY 09/28/12 Citalopram Hydrobromide [Citalopram HBr] 20 mg PO DAILY 02/21/16 Glimepiride [Amaryl -] 4 mg PO HS 02/21/16 Metformin HCl 425 mg PO HS 02/21/16 Multivitamins [Tab-A-Vit -] 1 tab PO DAILY 02/21/16 Family Disease History - Family Disease History Family Disease History: CA: Father (prostate cancer), Mother (uterine vs ovarian cancer), Sister (ovarian cancer) Review of Systems - Review of Systems Constitutional: reports: No Symptoms Eyes: reports: No Symptoms HENT: reports: No Symptoms Neck: reports: No Symptoms Cardiovascular: reports: No Symptoms Respiratory: reports: No Symptoms Gastrointestinal: reports: No Symptoms Genitourinary: reports: No Symptoms Breasts: reports: See HPI Musculoskeletal: reports: No Symptoms Integumentary: reports: Incision Neurological: reports: Confusion (post op) Endocrine: reports: No Symptoms Hematology/Lymphatic: reports: Other (anemia) Psychiatric: reports: Anxiety, Depression Physical Exam Vital Signs: Vital Signs Temperature 98 F 02/27/16 10:00 Pulse Rate 75 02/27/16 11:14 Respiratory Rate 18 02/27/16 10:00 Blood Pressure 82/56 02/27/16 10:00 O2 Sat by Pulse Oximetry (%) 94 L 02/27/16 11:14 Constitutional: Yes: Well Nourished, No Distress Eyes: Yes: Conjunctiva Clear HENT: Yes: Atraumatic Neck: Yes: Supple Cardiovascular: Yes: Regular Rate and Rhythm Respiratory: Yes: Other (LEft sided crackles right side clear) Gastrointestinal: Yes: WNL, Normal Bowel Sounds, Soft Extremities: Yes: Other (right finger amputated contracted right hand) Edema: No Wound/Incision: Yes: Other (POD#1 right breast MRM will defer taking down the dressing to surgery as it is a fresh wound and may not be ready for a dressing change JPx2 serosangenous) Neurological: Yes: Alert Labs: CBC, BMP 02/27/16 08:15 02/27/16 06:45 Imaging - Results Chest X-ray: Report Reviewed, Image Reviewed Cat Scan: Report Reviewed, Image Reviewed Ultrasound: Report Reviewed, Image Reviewed Assessment/Plan 65yF with PMH HTN, DM, Depression who is s/p mastectomy today, being evaluated for tachycardia and elevated BS. Sinus tachycardia with hypotension There may be an underlying infectious process going on vs anemia and less likely hypovolemia Patient seems to be adequately fluid resuscitated Good UOP Underlying cause currently under investigation could be secondary to anemia as Hb is 7.4 will give one unit PRBC and recheck Hb BCx x 1 pending from central line could not get peripheral stick will do UA/UCx Will do ECHO Recheck CXR in AM Hold IVF as her lungs are getting crackles likely from large amount of fluid resusciation may need pressors for support-patient has central line Transaminitis: likely from shock liver secondary to hypotension as patient likely has a higher baseline to maintain perfusion to organs US ABD shows fatty liver outpt follow up with GI Anemia: transfuse 1 unit PRBCs recheck CBC Breast CA s/p MRM POD # 1 continue ABx pain control with percocet Diabetes ISS fingersticks ACHS no metformin for 48hours s/p CTA HTN currently hypotensive hold home BP meds Depressio/anxiety/insomnia joanapro shine PPx: HSQ Protonix PT consult FEN CVP 11-12 no fluids needed at this time bolus PRN replete magnesium low sodium/diabetic diet CCT 60min
[2016-02-27] MEDS: oxyCODONE HCL 5 MG TABLET PO PRN ×3 (13:35→23:52)
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
[2016-02-27] MEDS ORDERED: MAGNESIUM SULF 50% (8.12 MEQ/2 ML-1 GM VIAL) IVPB ONE (15:02)
[2016-02-27 16:31] LABS: MCH 24.5 pg (25.7-33.7); MCHC 30.7 g/dl (32.0-36.0); MEAN CELL VOLUME 79.8 fl (80-96); PLATELET COUNT 209 K/MM3 (134-434); RDW 18.1 % (11.6-15.6); WHITE BLOOD COUNT 11.1 K/mm3 (4.0-10.0)
[2016-02-27] MEDS: INSULIN SLIDING SCALE (NOVOLOG) 1 VIAL SQ SCH ×2 (16:50→21:55)
[2016-02-27] MEDS: ACETAMINOPHEN 325 MG TABLET (FP) PO PRN ×2 (17:15→23:53)
[2016-02-27] MEDS ORDERED: HYDROmorphone HCL CARPU-JECT 1 MG/1 ML DISP.SYRIN IVPUSH ONE (19:34)
[2016-02-27] MEDS ORDERED: ZOLPIDEM TARTRATE 5 MG TABLET PO PRN (22:00)
[2016-02-28] MEDS ORDERED: HYDROmorphone HCL CARPU-JECT 1 MG/1 ML DISP.SYRIN IVPUSH ONE (01:03)
[2016-02-28] MEDS ORDERED: HYDROmorphone HCL CARPU-JECT 1 MG/1 ML DISP.SYRIN ONE (01:04)
[2016-02-28] MEDS: CEFAZOLIN 1 GM/D5W 50 ML IVPB SCH ×4 (02:18→21:02)
[2016-02-28] MEDS: ACETAMINOPHEN 325 MG TABLET (FP) PO PRN ×4 (06:16→19:28)
[2016-02-28] MEDS: oxyCODONE HCL 5 MG TABLET PO PRN ×3 (06:17→19:24)
[2016-02-28] MEDS: INSULIN SLIDING SCALE (NOVOLOG) 1 VIAL SQ SCH ×3 (06:18→21:03)
[2016-02-28 07:51] LABS: MCH 25.5 pg (25.7-33.7); MCHC 32.6 g/dl (32.0-36.0); MEAN CELL VOLUME 78.2 fl (80-96); MEAN PLT VOLUME 9.1 fl (7.5-11.1); PLATELET COUNT 230 K/MM3 (134-434); RDW 17.7 % (11.6-15.6); WHITE BLOOD COUNT 11.9 K/mm3 (4.0-10.0)
[2016-02-28 08:13] LABS: ALBUMIN 2.9 g/dl (3.4-5.0); ALK PHOS 155 U/L (45-117); ANION GAP 10 (8-16); BILIRUBIN,TOTAL 0.5 mg/dL (0.2-1.0); CALCIUM 8.4 mg/dL (8.5-10.1); CO2 25 mmol/L (21-32); CREATININE 0.4 mg/dL (0.55-1.02); GLUCOSE,RANDOM 185 mg/dL (74-106); SGOT/AST 226 U/L (15-37); SGPT/ALT 299 U/L (12-78); TOT PROT 6.5 g/dl (6.4-8.2)
--- NOTE | 2016-02-28 08:20 | PN ---
Progress Note (short form) - Note Progress Note: Patient seen and examined with nurse present. Nurse reports patient continued to complain of pain throughout the night. Patient is complaining of headache for which she received Tylenol 325 mg. Nurse reports patient has not been tachycardic, BP has been WNL, and patient continued to make large amount of urine throughout the night. Patient is getting OOB to chair. Denies SOB/CP/ dizziness. Last Vital Signs Temp Pulse Resp BP Pulse Ox 97.8 F 92 H 16 107/70 97 02/28/16 06:00 02/28/16 08:00 02/28/16 08:00 02/28/16 08:00 02/27/16 21:00 CBC, BMP 02/28/16 06:20 H&H improved from 8.2/26.7 yesterday afternoon CMP pending Urine output 2400ml recorded over 8 hours IRVING's 10 and 35 ml PE: Gen: NAD Right chest surgical site soft, no evidence of hematoma, tissues viable, without erythema or drainage, IRVING drains with serosanguineous drainage Problem List - Problems (1) Breast cancer, right breast Assessment/Plan: POD#1 s/p right modified radical mastectomy and sentinel node bx with reconstruction, with post-op tachycardia and hypotension Improved H&H, good urine output, no tachycardia overnight Monitor labs, urine output, IRVING drains Pain control Code(s): C50.911 - MALIGNANT NEOPLASM OF UNSP SITE OF RIGHT FEMALE BREAST Qualifiers: Breast location: overlapping sites of breast Patient gender: female Qualified Code(s): C50.811 - Malignant neoplasm of overlapping sites of right female breast
--- NOTE | 2016-02-28 09:11 | PN ---
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 Patient states that she feels better than yesterday but reports headaches. Otherwise the patient reports minimal discomfort at the surgical site. - Current Medication List Current Medications: Active Medications Acetaminophen (Tylenol -) 650 mg PO Q4H PRN PRN Reason: FEVER OR PAIN Citalopram Hydrobromide (Celexa -) 20 mg PO DAILY [facility] Ferrous Gluconate (Fergon -) 324 mg PO DAILY [facility] Cefazolin Sodium (Ancef 1 Gm Premixed Ivpb -) 50 mls @ 100 mls/hr IVPB Q6H-IV [facility] Stop: 03/04/16 20:59 Last Admin: 02/28/16 02:18 Dose: 100 mls/hr Insulin Aspart (Novolog Vial Sliding Scale -) 1 vial SQ ACHS [facility] PRN Reason: Protocol Last Admin: 02/28/16 06:18 Dose: 4 units Oxycodone HCl (Roxicodone -) 5 mg PO Q4H PRN PRN Reason: PAIN Last Admin: 02/28/16 06:17 Dose: 5 mg Zolpidem Tartrate (Ambien -) 5 mg PO HS PRN PRN Reason: Insomnia - Objective Vital Signs: Vital Signs Temperature 97.8 F 02/28/16 06:00 Pulse Rate 92 H 02/28/16 08:00 Respiratory Rate 16 02/28/16 08:00 Blood Pressure 107/70 02/28/16 08:00 O2 Sat by Pulse Oximetry (%) 97 02/27/16 21:00 Constitutional: Yes: Well Nourished, Calm Breast(s): Yes: Other (Right flap is warm with good color. Steristrips intact without drainage or erythema. IRVING with serosanginous discharge. No swelling noted.) Labs: CBC, BMP 02/28/16 06:20 02/28/16 06:20 INR, PTT INR 1.21 (0.82-1.09) 02/27/16 08:15 Problem List - Problems (1) Breast cancer, right breast Code(s): C50.911 - MALIGNANT NEOPLASM OF UNSP SITE OF RIGHT FEMALE BREAST Qualifiers: Breast location: overlapping sites of breast Patient gender: female Qualified Code(s): C50.811 - Malignant neoplasm of overlapping sites of right female breast Assessment/Plan Plan: Followup today's labs. Follow echocardiogram results Will discuss further management with Dr. Tsang and ICU doctors.
[2016-02-28] MEDS ORDERED: PT OWN MED DRAWER 7, Y5N ONE ×2 (09:24→20:55)
[2016-02-28] MEDS ORDERED: CITALOPRAM HYDROBROMIDE 20 MG TABLET (FP) PO SCH (10:00)
[2016-02-28] MEDS ORDERED: FERROUS GLUCONATE 324 MG TAB (FP) PO SCH (10:00)
--- NOTE | 2016-02-28 10:33 | OP ---
DATE OF OPERATION: 02/26/2016 TITLE OF PROCEDURE: Right breast reconstruction with tissue shoe parts molder, right breast placement of acellular dermal matrix allograft, separate right chest wall 4-cm complex wound closure at separate axillary wound site, and left breast excision of 1-cm benign lesion with 2-cm primary layered closure. The procedure was performed in combination with a right-sided mastectomy and right-sided axillary lymph node dissection. ATTENDING SURGEON: Philippe Terry MD PREOPERATIVE DIAGNOSIS: Right-sided breast cancer with left breast benign skin lesion of the areola. DESCRIPTION OF PROCEDURE: The patient was marked in the holding area, bilateral inframammary folds. The lesion on the left breast was marked for excision. The risks, benefits and alternatives to the procedure were discussed with the patient. She understood and agreed to proceed. She was brought to the operating room. She was positioned, prepped and draped by Dr. Tsang and his team, after which a Le catheter was placed. A gram of Ancef was given preoperatively. Sequential compression stockings and MAYANK hose were applied. I was not present until I scrubbed in after the mastectomy. At this point, hemostasis was meticulously achieved. The wound was copiously irrigated with triple antibiotic solution. Triple antibiotic solution in this case is 80 mg of gentamicin, 1 g of Ancef and 50,000 units of bacitracin in a liter of normal saline. After this was completed, a muscular pocket was developed first by developing a subpectoral pocket to the level of the sternal attachments. The inferior costal attachments are divided. A lateral serratus muscle flap is then elevated along the chest wall, leaving the intercostal muscular intact. Inferiorly, the rectus sheath is elevated to cover the inferior pole of the implant. The inframammary fold is then marked on the chest wall. A tissue shoe parts molder is brought into the field. It is evacuated of all air. It is rinsed in triple antibiotic solution. The tissue shoe parts molder used is a Floral style [id number] implant rated for a total fill volume of 550 mL, with a base width of 12 cm. The implant is oriented and the muscular pocket is closed with a running 3-0 PDS suture. Inferomedially there is a small area of the tissue shoe parts molder which is not able to be closed and appears to be a submuscular pocket. For this, the acellular dermal matrix was brought into the field. Alloderm brand matrix is used. It is rinsed with triple antibiotic solution, oriented properly, cut go accommodate the exposed area. It is sewn to the free edges of the pocket with a running 3-0 PDS suture. The wound was then copiously irrigated with triple antibiotic solution once again. Hemostasis is once again meticulously reachieved, with thorough exploration of the entire wound. Two flat IRVING drains were then brought out through lateral stab wound incisions and secured with 2-0 silk sutures. The skin was then prepared for closure by excising the distal 2 mm of skin on either side of the wound. The deep fatty capsular tissue of the mastectomy wound was closed with running locking 3-0 Monocryl suture. The dermis was approximated with a running locking buried dermal 3-0 Monocryl suture, and the skin was then approximated with a running subcuticular 3-0 Monocryl suture. Attention was then directed toward the axilla, where a 4-cm wound that had been made for the axillary dissection was separately closed. Zane layer fascia was closed with a running 3-0 Monocryl suture. The dermis was closed with a series of interrupted buried deep dermal 3-0 Monocryl suture, and the skin was closed with a running subcuticular 3-0 Monocryl suture. Attention was then directed toward the contralateral left breast, where an excision of the pedunculated lesion at the superior border of the areola was performed. This was a 1-cm lesion, elliptically excised as a 2-cm defect. The defect was then closed with a series of interrupted buried dermal 4-0 Monocryl suture. The skin was then closed with a series of interrupted 5-0 nylon suture. All wounds were dressed with Steri-Strips. Drains were placed to bulb suction with minimal output. A breast binder was applied to the chest wall. There were no position changes during the case. She was awoken from anesthesia and transferred to the recovery room without complication. Please note that the weight of the resected breast on the right was 533 g. PHILIPPE TERRY M.D. [id number]
--- NOTE | 2016-02-28 10:37 | PN ---
Progress Note (short form) - Note Progress Note: s: no cp sob palps dizzy o: Vital Signs Period Temp Pulse Resp BP Sys/Issa Pulse Ox Last 24 Hr 97.5 F-99 F 75-96 12-21 87-128/52-73 94-98 NAD, calm JVD flat, neck supple cta bl nl eff RRR nl s1, s2 no m/r/g + bs soft nt nd ext without e/c/c no jaundice, diaphoresis. aaox3 Current Medications Generic Name Dose Route Start Last Admin Trade Name Freq PRN Reason Stop Dose Admin Acetaminophen 650 mg 02/28/16 10:15 02/28/16 09:29 Tylenol - PO 650 mg Q4H PRN Administration FEVER OR PAIN Citalopram Hydrobromide 20 mg 02/28/16 10:00 02/28/16 09:30 Celexa - PO 20 mg DAILY AUGIE Administration Ferrous Gluconate 324 mg 02/28/16 10:00 Fergon - PO DAILY AUGIE Cefazolin Sodium 50 mls @ 100 mls/hr 02/27/16 15:00 02/28/16 09:29 Ancef 1 Gm Premixed Ivpb - IVPB 03/04/16 20:59 100 mls/hr Q6H-IV AUGIE Administration Insulin Aspart 1 vial 02/27/16 16:30 02/28/16 06:18 Novolog Vial Sliding Scale - SQ 4 units ACHS AUGIE Administration Protocol Oxycodone HCl 5 mg 02/27/16 11:47 02/28/16 06:17 Roxicodone - PO 5 mg Q4H PRN Administration PAIN Zolpidem Tartrate 5 mg 02/27/16 22:00 Ambien - PO HS PRN Insomnia CBC, BMP 02/28/16 06:20 02/28/16 06:20 EKG: Sinus tach. Inferolateral t wave abnormalities, possible inferior q waves. T wave abnormalities similar to priors. tele: sr 02/26 cxr: patchy opacification of lung horner could be from pulmonary vascular congestion. 02/25 CTA: No PE, Mild emphysematous changes, bibasal atelectasis with minimal left pleural effusion. Can't rule out superimposed infiltrate vascular u/s: No dvt Abd u/s: fatty liver, mild prominence of biliary tree. echo 02/2016: nl lv/rv, mild tr, rvsp 40-50 65 yo smoker with h/o HTN, GERD, fatty liver DM, rt breast mass who presented for rt mastectomy 1/3 complicated by persistent tachycardia and subsequent hypotension. Tachycardia/hypotension - No evidence of arrhythmia. Now resolved s/p resuscitaiton. No evidence of active bleeding. Likely 2/2 volume shifts from surgery, now resolved. - tele and echo unremarkable - Monitor for signs of infection. HTN - anti-hypertensives held while hypotensive. POD 2: - Currently improved hr control and bp normalized s/p transfusion. Ongoing resuscitation needs per pmd. + tobacco with emphysematous changes on CT - cessation counseling.
--- NOTE | 2016-02-28 12:16 | PN ---
Teaching Attending Note Name of Resident: De Knight ATTENDING PHYSICIAN STATEMENT I saw and evaluated the patient. I reviewed the resident's note and discussed the case with the resident. I agree with the resident's findings and plan as documented. SUBJECTIVE: Pt seen and examined in the ICU. Blood pressures improved after PRBC transfusion. Denies shortness of breath or chest pain. No fevers recorded. OBJECTIVE: Last Vital Signs Temp Pulse Resp BP Pulse Ox 97.5 F L 88 21 128/65 96 02/28/16 10:00 02/28/16 10:04 02/28/16 10:00 02/28/16 10:00 02/28/16 10:04 Intake & Output 02/25/16 02/26/16 02/27/16 02/28/16 23:59 23:59 23:59 23:59 Intake Total 4000 3220 220 Output Total 490 2470 2445 Balance 3510 750 -2225 Weight 130 lb Gen: more alert, awake, NAD in chair Heart: RRR Lung: bibasilar rales R>L Abd: soft, nontender Ext: no edema CBC, BMP 02/28/16 06:20 02/28/16 06:20 Active Medications Acetaminophen (Tylenol -) 650 mg PO Q4H PRN PRN Reason: FEVER OR PAIN Last Admin: 02/28/16 09:29 Dose: 650 mg Citalopram Hydrobromide (Celexa -) 20 mg PO DAILY AUGIE Last Admin: 02/28/16 09:30 Dose: 20 mg Ferrous Gluconate (Fergon -) 324 mg PO DAILY [facility] Cefazolin Sodium (Ancef 1 Gm Premixed Ivpb -) 50 mls @ 100 mls/hr IVPB Q6H-IV [facility]UGIE Stop: 03/04/16 20:59 Last Admin: 02/28/16 09:29 Dose: 100 mls/hr Insulin Aspart (Novolog Vial Sliding Scale -) 1 vial SQ ACHS AUGIE PRN Reason: Protocol Last Admin: 02/28/16 11:16 Dose: 6 units Oxycodone HCl (Roxicodone -) 5 mg PO Q4H PRN PRN Reason: PAIN Last Admin: 02/28/16 06:17 Dose: 5 mg Zolpidem Tartrate (Ambien -) 5 mg PO HS PRN PRN Reason: Insomnia ASSESSMENT AND PLAN: Breast Ca s/p R Modified Radical Mastectomy POD #2 Shock - ?Hemorrhagic/Hypovolemic Lactic Acidosis resolved Elevated LFTs - ?ischemic injury vs congestive hepatopathy Pulmonary HTN Anemia HTN DM - on antibiotics - f/u blood, urine cultures - monitor H/H - trend LFTs - monitor IRVING drainage - pt appears to be auto-diuresing well, will hold off on lasix - pain control - incentive spirometry - monitor CXR - PO as tolerated - DVT prophylaxis, can resume heparin SQ - can monitor on surgical floor
--- NOTE | 2016-02-28 12:27 | PN ---
Progress Note, Physician History of Present Illness: feels well no hypotension or tachycardia - Current Medication List Current Medications: Active Medications Acetaminophen (Tylenol -) 650 mg PO Q4H PRN PRN Reason: FEVER OR PAIN Last Admin: 02/28/16 09:29 Dose: 650 mg Citalopram Hydrobromide (Celexa -) 20 mg PO DAILY [facility]UGIE Last Admin: 02/28/16 09:30 Dose: 20 mg Ferrous Gluconate (Fergon -) 324 mg PO DAILY [facility] Heparin Sodium (Porcine) (Heparin -) 5,000 unit SQ TID [facility] Cefazolin Sodium (Ancef 1 Gm Premixed Ivpb -) 50 mls @ 100 mls/hr IVPB Q6H-IV AUGIE Stop: 03/04/16 20:59 Last Admin: 02/28/16 09:29 Dose: 100 mls/hr Insulin Aspart (Novolog Vial Sliding Scale -) 1 vial SQ ACHS AUGIE PRN Reason: Protocol Last Admin: 02/28/16 11:16 Dose: 6 units Oxycodone HCl (Roxicodone -) 5 mg PO Q4H PRN PRN Reason: PAIN Last Admin: 02/28/16 06:17 Dose: 5 mg Zolpidem Tartrate (Ambien -) 5 mg PO HS PRN PRN Reason: Insomnia - Objective Vital Signs: Vital Signs Temperature 97.5 F L 02/28/16 10:00 Pulse Rate 88 02/28/16 10:04 Respiratory Rate 21 02/28/16 10:00 Blood Pressure 128/65 02/28/16 10:00 O2 Sat by Pulse Oximetry (%) 96 02/28/16 10:04 Constitutional: Yes: Well Nourished, No Distress Eyes: Yes: Conjunctiva Clear HENT: Yes: Atraumatic Neck: Yes: Supple Cardiovascular: Yes: Regular Rate and Rhythm Respiratory: Yes: Other (LEft sided crackles right side clear) Gastrointestinal: Yes: WNL, Normal Bowel Sounds, Soft Extremities: Yes: Other (right finger amputated contracted right hand) Edema: No Wound/Incision: Yes: Other (JPx2 serosangenous) Neurological: Yes: Alert Labs: CBC, BMP 02/28/16 06:20 02/28/16 06:20 INR, PTT INR 1.21 (0.82-1.09) 02/27/16 08:15 Assessment/Plan 65yF with PMH HTN, DM, Depression who is s/p mastectomy today, being evaluated for tachycardia and elevated BS. Sinus tachycardia with hypotension likely symptomatic anemia now resolved There may be an underlying infectious process going on vs anemia and less likely hypovolemia Patient seems to be adequately fluid resuscitated Good UOP Underlying cause currently under investigation s/p 1 unit PRBCs BCx x 1 pending from central line could not get peripheral stick-no growth so far UA/UCx-negative ECHo reviewed Recheck CXR in AM n may need pressors for support-patient has central line Transaminitis: no improvement likely from shock liver secondary to hypotension as patient likely has a higher baseline to maintain perfusion to organs US ABD shows fatty liver outpt follow up with GI Anemia: s/p 1 unit PRBCs appropriate respone recheck CBC Breast CA s/p MRM POD # 2 continue ABx pain control with percocet Diabetes ISS fingersticks ACHS no metformin for 48hours s/p CTA HTN currently hypotensive hold home BP meds Depressio/anxiety/insomnia joanapro shine PPx: HSQ SCDs Protonix PT consult FEN CVP 11-12 no fluids needed at this time bolus PRN replete magnesium low sodium/diabetic diet transfer to floor
[2016-02-28] MEDS ORDERED: HEPARIN NA (PORCINE) 5,000 UNITS/ML 1ML VIAL SQ SCH (14:00)
[2016-02-28] MEDS ORDERED: ZOLPIDEM TARTRATE 5 MG TABLET PO PRN ×2 (14:53→17:15)
[2016-02-28] MEDS ORDERED: ACETAMINOPHEN 325 MG TABLET (FP) PO PRN (14:53)
[2016-02-28] MEDS ORDERED: oxyCODONE HCL 5 MG TABLET PO PRN (14:53)
[2016-02-28] MEDS ORDERED: CEFAZOLIN 1 GM/D5W 50 ML IVPB SCH (15:00)
--- NOTE | 2016-02-28 15:48 | PN ---
Physical Exam: Subjective: Patient seen and examined in the ICU. She has some chest tenderness at incision sites. She denies HICKEY, dizziness, she would like to go home, at bedside. Events: low grade fever this afternoon Objective: Vital Signs Period Temp Pulse Resp BP Sys/Issa Pulse Ox Last 24 Hr 97.5 F-100.1 F 79-96 12-22 87-140/52-89 96-98 PE Neuro: alert, awake, cn 2-12intact HEENT: RIJ c/d/i Pulm: scattered basilar crackles, no wheezing CV: s1 s2 rrr no mrg Breast: bilateral mastectomy x2 IRVING drains serosanguinous fluids Abd: s nt nd +bs : martin, light green tinged Ext: R hand contracted, finger amputation CBCD WBC 11.9 K/mm3 (4.0-10.0) H 02/28/16 06:20 RBC 3.59 M/mm3 (3.60-5.2) L 02/28/16 06:20 Hgb 9.2 GM/dL (10.7-15.3) L D 02/28/16 06:20 Hct 28.1 % (32.4-45.2) L 02/28/16 06:20 MCV 78.2 fl (80-96) L 02/28/16 06:20 MCHC 32.6 g/dl (32.0-36.0) 02/28/16 06:20 RDW 17.7 % (11.6-15.6) H 02/28/16 06:20 Plt Count 230 K/MM3 (134-434) 02/28/16 06:20 MPV 9.1 fl (7.5-11.1) 02/28/16 06:20 CMP Sodium 140 mmol/L (136-145) 02/28/16 06:20 Potassium 3.7 mmol/L (3.5-5.1) 02/28/16 06:20 Chloride 105 mmol/L (98-107) 02/28/16 06:20 Carbon Dioxide 25 mmol/L (21-32) 02/28/16 06:20 Anion Gap 10 (8-16) 02/28/16 06:20 BUN 5 mg/dL (7-18) L D 02/28/16 06:20 Creatinine 0.4 mg/dL (0.55-1.02) L 02/28/16 06:20 Creat Clearance w eGFR > 60 (>60) 02/28/16 06:20 Calcium 8.4 mg/dL (8.5-10.1) L 02/28/16 06:20 Total Bilirubin 0.5 mg/dL (0.2-1.0) D 02/28/16 06:20 AST 226 U/L (15-37) H 02/28/16 06:20 ALT 299 U/L (12-78) H 02/28/16 06:20 Alkaline Phosphatase 155 U/L (45-117) H D 02/28/16 06:20 Total Protein 6.5 g/dl (6.4-8.2) 02/28/16 06:20 Albumin 2.9 g/dl (3.4-5.0) L 02/28/16 06:20 Active Medications Generic Name Dose Route Start Last Admin Trade Name Freq PRN Reason Stop Dose Admin Acetaminophen 650 mg 02/28/16 14:53 Tylenol - PO Q4H PRN FEVER OR PAIN Citalopram Hydrobromide 20 mg 02/29/16 10:00 Celexa - PO DAILY [facility] Ferrous Gluconate 324 mg 02/29/16 10:00 Fergon - PO DAILY [facility] Heparin Sodium (Porcine) 5,000 unit 02/28/16 14:00 02/28/16 13:45 Heparin - SQ 5,000 unit TID AUGIE Administration Cefazolin Sodium 50 mls @ 100 mls/hr 02/28/16 15:00 Ancef 1 Gm Premixed Ivpb - IVPB 03/04/16 20:59 Q6H-IV [facility] Insulin Aspart 1 vial 02/28/16 16:30 Novolog Vial Sliding Scale - SQ ACHS [facility] Protocol Oxycodone HCl 5 mg 02/28/16 14:53 Roxicodone - PO Q4H PRN PAIN Zolpidem Tartrate 5 mg 02/28/16 14:53 Ambien - PO HS PRN Insomnia Assessment: 65 year old female with pmhx of Breast cancer, HTN, DM II, GERD, depression/anxiety, s/p right modified radical mastectomy and sentinel node bx with reconstruction 02/25/15 transferred from [place] for hypotension and tachycardia. Plan: 1. Acute blood loss anemia - Secondary to surgery - Transfused 1uprbc 02/26 with appropriate rise - Monitor hgb - Cont ferrous gluconate 2. Shock ?hemorrhagic vs hypovolemic - Currently, stable s/p packed cells - Lactate wnl - s/p 7 L NS - ECHO noted nml lv size, function, filling, RVSP 40-50mmhg - Maintain martin, stable uop, maintain until clear yellow 3. Breast ca s/p right modified radical mastectomy and sentinel node bx with reconstruction 02/25/15 - Core bx 01/08 shows invasive ductal carcinoma, DISC, ER [place] postive, Her 2 negative - Maintain IRVING drains - Cont cefazolin 1gm q6 - Blood and urine cx negative - Surgery following 4. Tachycardia - Resolved - CTA negative for PE 5. Transaminitis - Shock liver? - Trend - US negative for acute pathology 6. DM II - Hold po antidiabetics - Start levemir 10units hs - ISS, BGM ACHS 7. Depression/anxiety - Lexapro - Ambien 8. DVT - Heparin sq Visit type - Emergency Visit Emergency Visit: Yes ED Registration Date: 02/26/16 Care time: The patient presented to the Emergency Department on the above date and was hospitalized for further evaluation of their emergent condition. - New Patient This patient is new to me today: Yes Date on this admission: 02/28/16 - Critical Care Critical Care patient: No
[2016-02-28] MEDS ORDERED: INSULIN SLIDING SCALE (NOVOLOG) 1 VIAL SQ SCH (16:30)
--- NOTE | 2016-02-28 18:06 | PN ---
Progress Note (short form) - Note Progress Note: Patient has recovered with normalized blood pressure and heart rate. Comfortable, tolerating PO Good UOP Surgical sites CDI with no infection or collection IRVING's thin and functioning Low grade fever 2/2 atelectasis Encouraged IS, ambulation Transfer to floor once bed is available. Will await further diuresis prior to discharge
[2016-02-28] MEDS ORDERED: HEPARIN NA (PORCINE) 5,000 UNITS/ML 1ML VIAL ONE (20:56)
[2016-02-28] MEDS: HEPARIN NA (PORCINE) 5,000 UNITS/ML 1ML VIAL SQ SCH (21:02)
[2016-02-28] MEDS ORDERED: INSULIN DETEMIR 100 UNITS/ML MDV SQ SCH (22:00)
[2016-02-29] MEDS: CEFAZOLIN 1 GM/D5W 50 ML IVPB SCH ×3 (03:00→14:25)
[2016-02-29] MEDS: oxyCODONE HCL 5 MG TABLET PO PRN ×3 (05:44→14:24)
[2016-02-29] MEDS: ACETAMINOPHEN 325 MG TABLET (FP) PO PRN ×3 (05:44→14:24)
[2016-02-29] MEDS: HEPARIN NA (PORCINE) 5,000 UNITS/ML 1ML VIAL SQ SCH ×2 (05:45→13:44)
[2016-02-29 06:06] LABS: MCH 24.7 pg (25.7-33.7); MCHC 31.7 g/dl (32.0-36.0); MEAN PLT VOLUME 9.1 fl (7.5-11.1); PLATELET COUNT 279 K/MM3 (134-434); RDW 18.2 % (11.6-15.6); WHITE BLOOD COUNT 8.8 K/mm3 (4.0-10.0)
[2016-02-29 06:38] LABS: ANION GAP 9 (8-16); CALCIUM 8.4 mg/dL (8.5-10.1); CO2 25 mmol/L (21-32); GLUCOSE,RANDOM 172 mg/dL (74-106)
[2016-02-29 06:40] LABS: ALK PHOS 200 U/L (45-117); BILIRUBIN,TOTAL 0.7 mg/dL (0.2-1.0); CREATININE 0.5 mg/dL (0.55-1.02); SGOT/AST 211 U/L (15-37); SGPT/ALT 269 U/L (12-78); TOT PROT 6.9 g/dl (6.4-8.2)
--- NOTE | 2016-02-29 08:42 | PN ---
Progress Note, Physician Chief Complaint: S/P right mastectomy, andx with reconstruction POD 3 History of Present Illness: Patient seen in the ICU. She is tolerating po well. She denies SOB or chest pain. Voiding well. - Current Medication List Current Medications: Active Medications Acetaminophen (Tylenol -) 650 mg PO Q4H PRN PRN Reason: FEVER OR PAIN Citalopram Hydrobromide (Celexa -) 20 mg PO DAILY [facility] Ferrous Gluconate (Fergon -) 324 mg PO DAILY [facility] Heparin Sodium (Porcine) (Heparin -) 5,000 unit SQ TID [facility] Last Admin: 02/29/16 05:45 Dose: 5,000 unit Cefazolin Sodium (Ancef 1 Gm Premixed Ivpb -) 50 mls @ 100 mls/hr IVPB Q6H-IV [facility] Stop: 03/04/16 20:59 Last Admin: 02/29/16 03:00 Dose: 100 mls/hr Insulin Aspart (Novolog Vial Sliding Scale -) 1 vial SQ ACHS AUGIE PRN Reason: Protocol Last Admin: 02/28/16 21:03 Dose: 4 units Insulin Detemir (Levemir Vial) 10 units SQ HS [facility] Last Admin: 02/28/16 21:02 Dose: 10 units Oxycodone HCl (Roxicodone -) 5 mg PO Q4H PRN PRN Reason: PAIN Last Admin: 02/29/16 05:44 Dose: 5 mg Zolpidem Tartrate (Ambien -) 5 mg PO HS PRN PRN Reason: Insomnia - Objective Vital Signs: Vital Signs Temperature 97.9 F 02/29/16 06:00 Pulse Rate 70 02/29/16 08:00 Respiratory Rate 18 02/29/16 08:00 Blood Pressure 97/57 02/29/16 08:00 O2 Sat by Pulse Oximetry (%) 97 02/28/16 21:00 Constitutional: Yes: Well Nourished, Calm Breast(s): Yes: Other (Right flap with good color. Steristrips intact without discharge or erythema. huan x 2 with serosanginous discharge.) Labs: CBC, BMP 02/29/16 05:15 02/29/16 05:15 INR, PTT INR 1.21 (0.82-1.09) 02/27/16 08:15 Problem List - Problems (1) Breast cancer, right breast Code(s): C50.911 - MALIGNANT NEOPLASM OF UNSP SITE OF RIGHT FEMALE BREAST Qualifiers: Breast location: overlapping sites of breast Patient gender: female Qualified Code(s): C50.811 - Malignant neoplasm of overlapping sites of right female breast Assessment/Plan Plan: Patient ready for discharge to the regular floor but awaiting bed availability. LFTs are elevated but decreasing. Will discuss further management with Dr. Tsang.
[2016-02-29] MEDS: INSULIN SLIDING SCALE (NOVOLOG) 1 VIAL SQ SCH ×2 (09:36→11:59)
[2016-02-29] MEDS ORDERED: FERROUS GLUCONATE 324 MG TAB (FP) PO SCH ×2 (10:00)
[2016-02-29] MEDS ORDERED: CITALOPRAM HYDROBROMIDE 20 MG TABLET (FP) PO SCH ×2 (10:00)
--- NOTE | 2016-02-29 11:27 | PN ---
Progress Note (short form) - Note Progress Note: s: no cp sob palps dizzy o: Vital Signs Period Temp Pulse Resp BP Sys/Issa Pulse Ox Last 24 Hr 97.8 F-100.1 F 70-92 17-28 97-140/52-89 96-97 NAD, calm JVD flat, neck supple cta bl nl eff RRR nl s1, s2 no m/r/g + bs soft nt nd ext without e/c/c no jaundice, diaphoresis. aaox3 Current Medications Generic Name Dose Route Start Last Admin Trade Name Freq PRN Reason Stop Dose Admin Acetaminophen 650 mg 02/29/16 05:33 02/29/16 09:50 Tylenol - PO 650 mg Q4H PRN Administration FEVER OR PAIN Citalopram Hydrobromide 20 mg 02/29/16 10:00 02/29/16 09:35 Celexa - PO 20 mg DAILY [facility] Administration Ferrous Gluconate 324 mg 02/29/16 10:00 02/29/16 09:35 Fergon - PO 324 mg DAILY [facility] Administration Heparin Sodium (Porcine) 5,000 unit 02/28/16 22:00 02/29/16 05:45 Heparin - SQ 5,000 unit TID AUGIE Administration Cefazolin Sodium 50 mls @ 100 mls/hr 02/28/16 21:00 02/29/16 08:52 Ancef 1 Gm Premixed Ivpb - IVPB 03/04/16 20:59 100 mls/hr Q6H-IV AUGIE Administration Insulin Aspart 1 vial 02/28/16 22:00 02/29/16 09:36 Novolog Vial Sliding Scale - SQ Not Given ACHS [facility] Protocol Insulin Detemir 10 units 02/28/16 22:00 02/28/16 21:02 Levemir Vial SQ 10 units HS [facility] Administration Oxycodone HCl 5 mg 02/28/16 17:15 02/29/16 09:51 Roxicodone - PO 5 mg Q4H PRN Administration PAIN Zolpidem Tartrate 5 mg 02/28/16 17:15 Ambien - PO HS PRN Insomnia CBC, BMP 02/29/16 05:15 02/29/16 05:15 EKG: Sinus tach. Inferolateral t wave abnormalities, possible inferior q waves. T wave abnormalities similar to priors. tele: sr, sinus tachy 1/3 CTA: No PE, Mild emphysematous changes, bibasal atelectasis with minimal left pleural effusion. Can't rule out superimposed infiltrate vascular u/s: No dvt Abd u/s: fatty liver, mild prominence of biliary tree. echo 02/2016: nl lv/rv, mild tr, rvsp 40-50 a/p: 65 yo smoker with h/o HTN, GERD, fatty liver DM, rt breast mass who presented for rt mastectomy 02/25 complicated by persistent tachycardia and subsequent hypotension. Tachycardia/hypotension - No evidence of arrhythmia. Now resolved s/p resuscitaiton. No evidence of active bleeding. Likely 2/2 volume shifts from surgery, now resolved. - tele and echo unremarkable - Monitor for signs of infection. HTN - anti-hypertensives held while hypotensive. POD 3: - Currently improved hr control and bp normalized s/p transfusion. Ongoing resuscitation needs per pmd. + tobacco with emphysematous changes on CT - cessation counseling. can [employer] tele
--- NOTE | 2016-02-29 11:51 | PN ---
Teaching Attending Note Name of Resident: De Knight ATTENDING PHYSICIAN STATEMENT I saw and evaluated the patient. I reviewed the resident's note and discussed the case with the resident. I agree with the resident's findings and plan as documented. SUBJECTIVE: Patient seen and examined in the ICU. Awake and alert. No CP or SOB. LFTs are improving. Intake & Output 02/26/16 02/27/16 02/28/16 02/29/16 23:59 23:59 23:59 23:59 Intake Total 4000 3220 820 970 Output Total 490 2470 4150 2260 Balance 3510 750 -3330 -1290 Weight 130 lb Last Vital Signs Temp Pulse Resp BP Pulse Ox 97.8 F 80 18 117/89 96 02/29/16 09:53 02/29/16 09:53 02/29/16 09:53 02/29/16 09:53 02/29/16 09:00 Active Medications Acetaminophen (Tylenol -) 650 mg PO Q4H PRN PRN Reason: FEVER OR PAIN Last Admin: 02/29/16 09:50 Dose: 650 mg Citalopram Hydrobromide (Celexa -) 20 mg PO DAILY [facility] Last Admin: 02/29/16 09:35 Dose: 20 mg Ferrous Gluconate (Fergon -) 324 mg PO DAILY [facility] Last Admin: 02/29/16 09:35 Dose: 324 mg Heparin Sodium (Porcine) (Heparin -) 5,000 unit SQ TID [facility] Last Admin: 02/29/16 05:45 Dose: 5,000 unit Cefazolin Sodium (Ancef 1 Gm Premixed Ivpb -) 50 mls @ 100 mls/hr IVPB Q6H-IV [facility] Stop: 03/04/16 20:59 Last Admin: 02/29/16 08:52 Dose: 100 mls/hr Insulin Aspart (Novolog Vial Sliding Scale -) 1 vial SQ ACHS [facility] PRN Reason: Protocol Last Admin: 02/29/16 09:36 Dose: Not Given Insulin Detemir (Levemir Vial) 10 units SQ HS [facility] Last Admin: 02/28/16 21:02 Dose: 10 units Oxycodone HCl (Roxicodone -) 5 mg PO Q4H PRN PRN Reason: PAIN Last Admin: 02/29/16 09:51 Dose: 5 mg Zolpidem Tartrate (Ambien -) 5 mg PO HS PRN PRN Reason: Insomnia Gen: Awake and alert, NAD Heart: RRR Lung: bibasilar rhonchi Left > Right Abd: soft, nontender Ext: no edema Laboratory Results - last 24 hr 02/28/16 02/28/16 02/28/16 11:12 17:01 20:28 WBC RBC Hgb Hct MCV MCHC RDW Plt Count MPV Sodium Potassium Chloride Carbon Dioxide Anion Gap BUN Creatinine Creat Clearance w eGFR POC Glucometer 295.90240 234.24737 195.88912 Random Glucose Calcium Total Bilirubin AST ALT Alkaline Phosphatase Total Protein Albumin 02/29/16 02/29/16 02/29/16 05:15 05:15 05:42 WBC 8.8 RBC 3.94 Hgb 9.7 L Hct 30.7 L MCV 78.0 L MCHC 31.7 L RDW 18.2 H Plt Count 279 D MPV 9.1 Sodium 138 Potassium 3.4 L Chloride 104 Carbon Dioxide 25 Anion Gap 9 BUN 5 L Creatinine 0.5 L D Creat Clearance w eGFR > 60 POC Glucometer [phone] Random Glucose 172 H Calcium 8.4 L Total Bilirubin 0.7 D AST 211 H ALT 269 H Alkaline Phosphatase 200 H D Total Protein 6.9 Albumin 3.0 L ASSESSMENT AND PLAN: Breast Ca S/P Right Modified Radical Mastectomy POD #3 Shock - (?) Hemorrhagic/Hypovolemic Lactic Acidosis resolved Elevated LFTs - (?) ischemic injury vs congestive hepatopathy Pulmonary HTN Anemia HTN DM - Noted ABX - monitor H/H - trend LFTs - Follow UO - Pain control - Incentive spirometry - PO as tolerated - VTE prophylaxis - Surgical floor Dr Davis CCTime 35"
--- NOTE | 2016-02-29 11:53 | PN ---
Progress Note, Physician History of Present Illness: feels well no hypotension or tachycardia - Current Medication List Current Medications: Active Medications Acetaminophen (Tylenol -) 650 mg PO Q4H PRN PRN Reason: FEVER OR PAIN Last Admin: 02/29/16 09:50 Dose: 650 mg Citalopram Hydrobromide (Celexa -) 20 mg PO DAILY [facility] Last Admin: 02/29/16 09:35 Dose: 20 mg Ferrous Gluconate (Fergon -) 324 mg PO DAILY [facility] Last Admin: 02/29/16 09:35 Dose: 324 mg Heparin Sodium (Porcine) (Heparin -) 5,000 unit SQ TID [facility] Last Admin: 02/29/16 05:45 Dose: 5,000 unit Cefazolin Sodium (Ancef 1 Gm Premixed Ivpb -) 50 mls @ 100 mls/hr IVPB Q6H-IV [facility] Stop: 03/04/16 20:59 Last Admin: 02/29/16 08:52 Dose: 100 mls/hr Insulin Aspart (Novolog Vial Sliding Scale -) 1 vial SQ ACHS [facility] PRN Reason: Protocol Last Admin: 02/29/16 09:36 Dose: Not Given Insulin Detemir (Levemir Vial) 10 units SQ HS [facility] Last Admin: 02/28/16 21:02 Dose: 10 units Oxycodone HCl (Roxicodone -) 5 mg PO Q4H PRN PRN Reason: PAIN Last Admin: 02/29/16 09:51 Dose: 5 mg Zolpidem Tartrate (Ambien -) 5 mg PO HS PRN PRN Reason: Insomnia - Objective Vital Signs: Vital Signs Temperature 97.8 F 02/29/16 09:53 Pulse Rate 80 02/29/16 09:53 Respiratory Rate 18 02/29/16 09:53 Blood Pressure 117/89 02/29/16 09:53 O2 Sat by Pulse Oximetry (%) 96 02/29/16 09:00 Constitutional: Yes: Well Nourished, No Distress Eyes: Yes: Conjunctiva Clear HENT: Yes: Atraumatic Neck: Yes: Supple Cardiovascular: Yes: Regular Rate and Rhythm Respiratory: Yes: CTAB Gastrointestinal: Yes: WNL, Normal Bowel Sounds, Soft Extremities: Yes: Other (right finger amputated contracted right hand) Edema: No Neurological: Yes: Alert Labs: CBC, BMP 02/29/16 05:15 02/29/16 05:15 INR, PTT INR 1.21 (0.82-1.09) 02/27/16 08:15 Assessment/Plan 65yF with PMH HTN, DM, Depression who is s/p mastectomy today, being evaluated for tachycardia and elevated BS. Sinus tachycardia with hypotension likely symptomatic anemia now resolved There may be an underlying infectious process going on vs anemia and less likely hypovolemia Patient seems to be adequately fluid resuscitated Good UOP Underlying cause currently under investigation s/p 1 unit PRBCs with good response CBC stable BCx x 1 pending from central line could not get peripheral stick-no growth so far UA/UCx-negative ECHo reviewed Transaminitis: no improvement likely from shock liver secondary to hypotension as patient likely has a higher baseline to maintain perfusion to organs US ABD shows fatty liver outpt follow up with GI no need for inpatient consult as patient's LFTs are trending down Anemia: s/p 1 unit PRBCs appropriate response recheck CBC Breast CA s/p MRM POD # 3 continue ABx pain control with percocet Diabetes ISS fingersticks ACHS no metformin for 48hours s/p CTA HTN no issues at this time Depressio/anxiety/insomnia lexapro ambien PPx: HSQ SCDs Protonix PT consult FEN CVP 11-12 no fluids needed at this time bolus PRN no electrolyte issues low sodium/diabetic diet transfer to floor
[2016-02-29] MEDS ORDERED: POTASSIUM CHLORIDE 40 MEQ/30 ML UNIT DOSE CUP PO ONE (13:27)
--- NOTE | 2016-02-29 13:47 | PATH ---
Surgical Pathology Report Patient Name: ROGER FELICIANO [facility]. Rec. #: [id number] /Age/Gender: 1950 (Age: 65) / F Account: <[id number]> Location: [facility] Taken: 02/26/2016 Received: 02/26/2016 Reported: 02/29/2016 Physicians: Marion Tsang M.D. Specimen(s) Received A: RIGHT AXILLARY SENTINEL NODE. FS B: RIGHT MASTECTOMY C: RIGHT AXILLARY CONTENTS D: SKIN TAG LEFT AREOLAR Clinical History Right breast cancer Intraoperative Consult Diagnosis Right axillary sentinel nodes #1: At least six lymph nodes; carcinoma is present in one lymph node (1/6) and in one detached fragment of tissue. 3 TPs, [address] Marquez 02/26/16. Final Diagnosis A. SENTINEL LYMPH NODES, RIGHT AXILLARY, BIOPSY: ONE OF SIX LYMPH NODES POSITIVE FOR METASTATIC CARCINOMA (/6). SIZE OF THE LARGEST TUMOR DEPOSIT: 0.5 CM. EXTRANODAL EXTENSION: IDENTIFIED (TUMOR IS PRESENT IN A FRAGMENT OF SURROUNDING SOFT TISSUE). B. BREAST, RIGHT, MASTECTOMY: INVASIVE DUCTAL CARCINOMA, MODERATELY DIFFERENTIATED, WITH MICROPAPILLARY FEATURES AND FOCAL LOBULAR GROWTH PATTERN (CLAU HISTOLOGIC SCORE OF 7: TUBULE FORMATION 3 OF 3, NUCLEAR PLEOMORPHISM 2 OF 2, MITOTIC RATE 2 OF 2). INVASIVE CARCINOMA SIZE AND FOCALITY: SINGLE FOCUS, 2.5 CM. DUCTAL CARCINOMA IN SITU (DCIS), INTERMEDIATE NUCLEAR GRADE, SOLID AND CRIBRIFORM TYPE, WITH CENTRAL NECROSIS AND CALCIFICATIONS. DCIS EXTENT: DCIS IS MINOR (<25%); ASSOCIATED WITH INVASIVE CARCINOMA. SURGICAL RESECTION MARGINS: INVASIVE CARCINOMA IS FOCALLY LESS THAN 1 MM FROM THE DEEP MARGIN, ANTERIOR SOFT TISSUE MARGIN IS >1 CM FROM INVASIVE CARCINOMA; DCIS IS MORE THAN 2 MM AWAY FROM THE DEEP MARGIN AND >1 CM AWAY FROM ANTERIOR SOFT TISSUE MARGINS. SKIN: NOT INVOLVED BY CARCINOMA. NIPPLE: NOT INVOLVED BY DCIS. SKELETAL MUSCLE: FOCALLY PRESENT, NOT INVOLVED BY CARCINOMA. LYMPHOVASCULAR INVASION: HIGHLY SUSPICIOUS. PERINEURAL INVASION: NOT DEFINITIVELY IDENTIFIED. SURROUNDING BREAST TISSUE: FOCAL ATYPICAL DUCTAL HYPERPLASIA (ADH); FIBROCYSTIC CHANGE WITH USUAL DUCTAL HYPERPLASIA, ADENOSIS, CYSTIC APOCRINE METAPLASIA, COLUMNAR CELL CHANGE, DILATATION, CYST FORMATION, FIBROADENOMATOID CHANGE AND STROMAL FIBROSIS WITH ASSOCIATED MICROCALCIFICATIONS; FIBROADENOMA (0.7 CM). TWO INTRAMAMMARY LYMPH NODES, NEGATIVE FOR METASTATIC CARCINOMA (0/2). PATHOLOGIC STAGING: pT2 pN1a (ALSO REFER TO CHECKLIST BELOW) RECEPTOR STATUS: REFER TO CHECKLIST BELOW. Comment: Immunohistochemical stain for E-cadherin performed and interpreted on block B3 [facility] shows the following: tumor cells are positive for E-cadherin is membranous staining supporting ductal phenotype. Immunohistochemical stains for SMM-HC and P-63 performed and interpreted at [facility] on block B8 highlights myoepithelial cells in areas of adenosis. C. AXILLARY CONTENTS, RIGHT, DISSECTION: FIFTEEN LYMPH NODES, NEGATIVE FOR METASTATIC CARCINOMA (0/15). D. SKIN, LEFT AREOLAR, SKIN TAG, EXCISIONAL BIOPSY: FIBROEPITHELIAL POLYP. Comments Breast Invasive Carcinoma: Surgical Pathology Cancer Case Summary Based on AJCC/UICC TNM, 7th edition Procedure _x_ Total mastectomy (including nipple and skin) Lymph Node Sampling _x_ Monson lymph nodes _x_ Axillary dissection _x_ Lymph nodes present within the breast specimen (intramammary lymph nodes) Specimen Laterality _x_ Right Tumor Size: Size of Largest Invasive Carcinoma Greatest dimension of largest focus of invasion over 1 mm: 2.5 cm (25 mm) Tumor Focality _x_ Single focus of invasive carcinoma Macroscopic and Microscopic Extent of Tumor Skin _x_ Invasive carcinoma does not invade into the dermis or epidermis Nipple _x_ DCIS does not involve the nipple epidermis Skeletal Muscle _x_ Not involved by carcinoma Ductal Carcinoma In Situ (DCIS) _x_ DCIS is present _x_ as a minor component (< 25% of tumor) Histologic Type of Invasive Carcinoma : _x_ Invasive ductal carcinoma with micropapillary features and focal lobular growth pattern Histologic Grade: (Adelanto Histologic Score) Tubular Differentiation _x_ Score 3 Nuclear Pleomorphism _x_ Score 2 Mitotic Rate _x_ Score 2 Overall Grade _x_ Grade 2: score of 7 (moderately differentiated) Margins _x_ Margin close to (< 1 mm) invasive carcinoma: deep margin is focally <1mm from invasive carcinoma _x_ Margins uninvolved by DCIS (required only if residual DCIS is present in specimen) Distance from closest margin (deep): >2 mm Lymph-Vascular Invasion _x_ Highly suspicious Lymph Nodes Total number of lymph nodes examined (sentinel and nonsentinel): 23 Number of sentinel lymph nodes examined: 6 Number of lymph nodes with macrometastases ( > 2 mm): 1 Number of lymph nodes with micrometastases (>0.2 mm to 2 mm and/or >200cells):0 Number of lymph nodes with isolated tumor cells (=0.2 mm and =200 cells): 0 Size of largest metastatic deposit (if present): 0.5 cm (5 mm) Extranodal Extension _x_ Present Pathologic Staging (pTNM) Primary Tumor (Invasive Carcinoma): pT2 Regional Lymph Nodes (pN): pN1a Distant Metastasis (pM): not applicable Biomarker Studies Results of ER and PA studies performed on this specimen (block B3) at [facility] are as follows: ER (clone [id number] mouse monoclonal antibody by [employer]): ~90% nuclear staining with moderate to strong intensity (Positive). PA (clone16 mouse monoclonal antibody by [employer]): 50% nuclear staining with moderate to strong intensity (Positive). Results of Her2 studies will be reported separately in an addendum. Positive and negative controls (internal if applicable) show appropriate results. Formalin fixation and cold ischemic times are within current ASCO/CAP recommendations for ER, PA and Her2 testing. Electronically Signed Blayne Marquez M.D. Addendum Reported: 03/04/2016 Addendum Diagnosis Results of Her2 (IHC) & Ki-67 studies performed on block B3 at [place], [place] ([id number]) are as follows: Her2 IHC (EP3 from [employer], formerly known as [id number], using [employer] Polymer Refine detection kit):1+ (Negative) Ki-67: up to 30-35% (High proliferation index) Positive and negative controls (internal if applicable) show appropriate results. Blayne Marquez M.D. Gross Description A. Received fresh, labeled "right axillary sentinel nodes #1" are three fragments of abraahm-pink fatty tissue ranging from 0.8-1.6 cm in end the largest dimension. The tissue is dissected to reveal six lymph nodes ranging from 0.2-1.5 cm in greatest dimension. The larger nodes are bisected. Touch preps are made and the nodes are submitted for frozen sections in three cassettes with cassettes 1 and 2 with larger bisected nodes in cassette #3 with the smaller nodes. Frozen section residues are submitted entirely in three cassettes. AF02/26/2016 B. Received in formalin, labeled "right mastectomy" is a 560 gram, 20.5 x 19.0 x 3.5 cm right mastectomy specimen with a short suture marking the superior aspect and a long suture marking the lateral aspect of the specimen, per the surgeon. The anterior surface displays a 9.3 x 4.0 cm abraham, elliptical portion of skin with a 0.8 cm diameter inverted nipple. The deep margin is inked black and the anterior soft tissue margin is inked blue. The specimen is serially sectioned from lateral to medial. Sectioning reveals a 2.3 x 2.0 x 1.8 cm abraham, indurated mass in the upper inner quadrant (UIQ). The mass focally abuts the deep margin grossly. The mass is surrounded by focally firm fibrous tissue. The remaining breast parenchyma displays multiple foci of dense white fibrous tissue. Loan Funder sections are submitted in 18 cassettes as follows: 1-serially sectioned nipple; 2-subareolar shave; 3-full face section of UIQ mass with deep margin; 2-6-dihfcticsy UIQ mass with deep margin; 6-additional UIQ mass; 7-9-UIQ firm tissue surrounding the mass; 10-11-lower inner quadrant; 12-13-upper outer quadrant; 14-15-lower outer quadrant; 16-anterior soft tissue margin; 17-skin; 18-deep margin. Time to formalin fixation: 25 minutes Total formalin fixation time: Approximately 26 hours. C. Received in formalin, labeled "right axillary contents" is a 12.5 x 9.5 x 2.4 cm aggregate of yellow, lobulated adipose tissue. Sectioning reveals multiple abraham, irregular lymph node. The lymph nodes are submitted in 8 cassettes as follows: 1-2-one whole trisected lymph node each; 3-one whole bisected lymph node; 8-8-unxkmeta lymph nodes each. D. Received in formalin, labeled "skin tag left areola" is a 1.1 x 0.8 x 0.6 cm brown, polypoid portion of skin. The base is inked green and the specimen is trisected and entirely submitted in one cassette. DL02/27/2016 final02/26/2016
--- NOTE | 2016-02-29 14:01 | PN ---
Physical Exam: SUBJECTIVE: Patient seen and examined. She is OOB to chair using her incentive spirometer. Continues to have incisional pain OBJECTIVE: Vital Signs Period Temp Pulse Resp BP Sys/Issa Pulse Ox Last 24 Hr 97.8 F-100.1 F 70-92 17-28 97-140/52-89 96-97 PE Neuro: alert, awake, cn 2-12intact HEENT: RIJ c/d/i Pulm: CTAB CV: s1 s2 rrr no mrg Breast: R side mastectomy x2 IRVING drains serosanguinous fluids incision x2 cdi Abd: s nt nd +bs Ext: R hand contracted, finger amputation CBCD WBC 8.8 K/mm3 (4.0-10.0) 02/29/16 05:15 RBC 3.94 M/mm3 (3.60-5.2) 02/29/16 05:15 Hgb 9.7 GM/dL (10.7-15.3) L 02/29/16 05:15 Hct 30.7 % (32.4-45.2) L 02/29/16 05:15 MCV 78.0 fl (80-96) L 02/29/16 05:15 MCHC 31.7 g/dl (32.0-36.0) L 02/29/16 05:15 RDW 18.2 % (11.6-15.6) H 02/29/16 05:15 Plt Count 279 K/MM3 (134-434) D 02/29/16 05:15 MPV 9.1 fl (7.5-11.1) 02/29/16 05:15 CMP Sodium 138 mmol/L (136-145) 02/29/16 05:15 Potassium 3.4 mmol/L (3.5-5.1) L 02/29/16 05:15 Chloride 104 mmol/L (98-107) 02/29/16 05:15 Carbon Dioxide 25 mmol/L (21-32) 02/29/16 05:15 Anion Gap 9 (8-16) 02/29/16 05:15 BUN 5 mg/dL (7-18) L 02/29/16 05:15 Creatinine 0.5 mg/dL (0.55-1.02) L D 02/29/16 05:15 Creat Clearance w eGFR > 60 (>60) 02/29/16 05:15 Calcium 8.4 mg/dL (8.5-10.1) L 02/29/16 05:15 Total Bilirubin 0.7 mg/dL (0.2-1.0) D 02/29/16 05:15 AST 211 U/L (15-37) H 02/29/16 05:15 ALT 269 U/L (12-78) H 02/29/16 05:15 Alkaline Phosphatase 200 U/L (45-117) H D 02/29/16 05:15 Total Protein 6.9 g/dl (6.4-8.2) 02/29/16 05:15 Albumin 3.0 g/dl (3.4-5.0) L 02/29/16 05:15 Active Medications Generic Name Dose Route Start Last Admin Trade Name Freq PRN Reason Stop Dose Admin Acetaminophen 650 mg 02/29/16 05:33 02/29/16 09:50 Tylenol - PO 650 mg Q4H PRN Administration FEVER OR PAIN Citalopram Hydrobromide 20 mg 02/29/16 10:00 02/29/16 09:35 Celexa - PO 20 mg DAILY [facility] Administration Ferrous Gluconate 324 mg 02/29/16 10:00 02/29/16 09:35 Fergon - PO 324 mg DAILY [facility] Administration Heparin Sodium (Porcine) 5,000 unit 02/28/16 22:00 02/29/16 13:44 Heparin - SQ 5,000 unit TID [facility] Administration Cefazolin Sodium 50 mls @ 100 mls/hr 02/28/16 21:00 02/29/16 08:52 Ancef 1 Gm Premixed Ivpb - IVPB 03/04/16 20:59 100 mls/hr Q6H-IV [facility] Administration Insulin Aspart 1 vial 02/28/16 22:00 02/29/16 11:59 Novolog Vial Sliding Scale - SQ 2 units ACHS [facility] Administration Protocol Insulin Detemir 10 units 02/28/16 22:00 02/28/16 21:02 Levemir Vial SQ 10 units HS [facility] Administration Oxycodone HCl 5 mg 02/28/16 17:15 02/29/16 09:51 Roxicodone - PO 5 mg Q4H PRN Administration PAIN Potassium Chloride 40 meq 02/29/16 13:27 02/29/16 13:44 Kcl Oral Solution - PO 02/29/16 13:28 40 meq ONCE ONE Administration Zolpidem Tartrate 5 mg 02/28/16 17:15 Ambien - PO HS PRN Insomnia Assessment: 65 year old female with pmhx of Breast cancer, HTN, DM II, GERD, depression/anxiety, s/p right modified radical mastectomy and sentinel node bx with reconstruction 02/25/15 transferred from [place] for hypotension and tachycardia. Plan: 1. Acute blood loss anemia - Secondary to surgery - Transfused 1uprbc 02/26 - Hgb stable - Cont ferrous gluconate 2. Shock ?hemorrhagic vs hypovolemic - Resolved following blood transfusion - s/p 7 L NS - ECHO noted nml lv size, function, filling, RVSP 40-50mmhg 3. Breast ca s/p right modified radical mastectomy and sentinel node bx with reconstruction and registered travel nurse 02/25/15 - ABx per surgical team: cefazolin 1gm q6 - VNS is set up for pt upon discharge for IRVING drain maintenance - Core bx 01/08: invasive ductal carcinoma, DISC, ER NV postive, Her 2 negative - D/w Surgical PA Audrey, pt cleared from medicine - To follow up w/ Dr. Coleman in office 4. Hypokalemia - Will replete KCL 40meq x1 5. Tachycardia - Resolved - CTA negative for PE 6. Transaminitis - Shock liver? - LFT's down trending - US negative for acute pathology 7. DM II - Levemir 10units hs while inpt - Resume po antidiabetics on discharge - ISS, BGM ACHS 8. Depression/anxiety - Lexapro - Ambien 9. DVT - Heparin sq Will sign off, thank you for this consultative opportunity, please call back if needed Visit type - Emergency Visit Emergency Visit: Yes ED Registration Date: 02/26/16 Care time: The patient presented to the Emergency Department on the above date and was hospitalized for further evaluation of their emergent condition. - New Patient This patient is new to me today: No - Critical Care Critical Care patient: No
[2016-02-29 16:50] VITALS: BP 117/80; PULSE 88; TEMP 98
--- NOTE | 2016-02-29 17:27 | DS ---
Physical Exam: SUBJECTIVE: Patient seen and examined. POD #3 s/p Right breast mastectomy with sentinel LN biopsy and reconstruction. Alert. Sitting in chair next to bed. Resting comfortably without complaint. Ambulating without difficulty. Tolerating PO diet. Voiding spontaneously. Denies n/v/f/c, CP, cough, COB, NOVA, palpitations, HICKEY or hemoptysis. OBJECTIVE: Last Vital Signs Temp Pulse Resp BP Pulse Ox 98 F 88 18 117/80 96 02/29/16 15:00 02/29/16 15:00 02/29/16 15:00 02/29/16 15:00 02/29/16 09:00 PE GENERAL: Awake, alert, and fully oriented, in no acute distress. HEAD: NC. AT. EYES: PERRL, extraocular movements intact, sclera anicteric, conjunctiva clear. NECK: Trachea midline, full range of motion, supple. LUNGS: CTA b/l anteriorly HEART: RRR ABDOMEN: Soft, NT, ND, normoactive bowel sounds. EXTREMITIES: 2+ pulses, warm, well-perfused, no edema. NEUROLOGICAL: Cranial nerves II - XII grossly intact. PSYCH: Normal mood, normal affect. SKIN: Surgical dressing right chest wall c/d/i. No hematoma. Tissue viable. No hematoma. 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 She was admitted to [facility] for continued post-op management. Elissa-operative IV ABX were administered. DVT prophylaxis was achieved with SCDs. POD #1, the patient developed tachycardia and hypotension. She was transferred by ambulance to [facility] where she was admitted to the ICU for closer observation. While there, she received 1 unit PRBC and fluid resuscitation initiated. A Pulmonary consult obtained by Dr. Urbina. Xray performed which showed pulmonary vascular congestion. She was started on lasix. Echo performed and no abnormalities noted. Continued conservative management. Narcotic and antibiotic scripts were escribed to patients pharmacy of choice. The discharge instructions and an oral pain management plan were reviewed with the patient. Instructed patient and daughter how to properly care for the IRVING drains (strip/ milk and record). Had them perform skill in front of me to demonstrate they understood. Patient will f/u w/ Dr. Landrum 03/03/15 in his office for drain removal. Opportunity for questions, all questions answered. Above plan discussed with Dr. Landrum and agrees. Minutes to complete discharge: 20 Visit type - Case Type Case Type: Scheduled Admission - New patient This patient is new to me today: Yes Date on this admission: 02/29/16
[2016-03-05 06:06] LABS: HEP B SURFACE AB Reactive (.)
== END 2016-02-29 16:55 | disposition home or self-care (01) | DRG 264 ==
LOC: FASU 10:13 → EDSTATUS 12:30 → FM/S 15:47 → FASU 21:37 → JICU 02-27 09:45
PROVIDERS: ADMIT Surgery Surgical Oncology; ATTEND Nurse Practitioner Acute Care
PROC: 0HHT0NZ Insertion of Tissue Expander into Right Breast, Open Approach (ICD-10-PCS; 2016-02-26)
PROC: 0HBU0ZX Excision of Left Breast, Open Approach, Diagnostic (ICD-10-PCS; 2016-02-26)
PROC: 0HTT0ZZ Resection of Right Breast, Open Approach (ICD-10-PCS; principal; 2016-02-26 12:30)
PROC: 07B50ZX Excision of Right Axillary Lymphatic, Open Approach, Diagnostic (ICD-10-PCS; 2016-02-26 12:30)
PROC: 0HUT0KZ Supplement Right Breast with Nonautologous Tissue Substitute, Open Approach (ICD-10-PCS; 2016-02-26 12:30)
PROC: 30233N1 Transfusion of Nonautologous Red Blood Cells into Peripheral Vein, Percutaneous Approach (ICD-10-PCS; 2016-02-27)
DX: I97.89 Other postprocedural complications and disorders of the circulatory system, not elsewhere classified (principal); K72.00 Acute and subacute hepatic failure without coma; E87.2 Acidosis; C77.3 Secondary and unspecified malignant neoplasm of axilla and upper limb lymph nodes; D62 Acute posthemorrhagic anemia; J98.11 Atelectasis; I95.81 Postprocedural hypotension; C50.911 Malignant neoplasm of unspecified site of right female breast; I10 Essential (primary) hypertension; E11.9 Type 2 diabetes mellitus without complications; F32.9 Major depressive disorder, single episode, unspecified; Z79.84 Long term (current) use of oral hypoglycemic drugs; E87.6 Hypokalemia; R00.0 Tachycardia, unspecified; F41.9 Anxiety disorder, unspecified; K21.9 Gastro-esophageal reflux disease without esophagitis; N64.89 Other specified disorders of breast; Y83.8 Other surgical procedures as the cause of abnormal reaction of the patient, or of later complication, without mention of misadventure at the time of the procedure; I27.2 Other secondary pulmonary hypertension; G47.00 Insomnia, unspecified
CPT/HCPCS: 36415; 36430; 71010-TC; 71275-TC; 76700-TC; 80053; 81003; 82550; 82553; 83605; 83735; 83880; 84100; 84484; 85025; 85027; 85610; 86704; 86706; 86708; 86803; 86850; 86900; 86901; 86922; 87040; 87086; 87340; 88108-TC; 88304-TC; 88307-TC; 88331-TC; 88332; 88333; 88341-TC; 88342-TC; 93005; 93010; 93306-TC; 93970-TC; 94760; J1644; P9058

== ENCOUNTER 2016-03-13 11:19 | Day surgery (SDC) | payer OTHER ==
[2016-03-12 18:45] VITALS: BMI 23.3
[~2016-03-13 11:19] MED LIST: LACTATED RINGERS SOLUTION 1,000 ML IV SCH; ONDANSETRON 4 MG/2 ML VIAL IVPUSH PRN; oxyCODONE HCL 5 MG TABLET PO PRN
[2016-03-13] MEDS ORDERED: ROCURONIUM BROMIDE 50 MG/5 ML VIAL ONE (11:29)
[2016-03-13] MEDS ORDERED: PROPOFOL 20 ML ONE ×2 (11:29→13:26)
[2016-03-13] MEDS ORDERED: LIDOCAINE HCL/PF 2% SDV 5ML VIAL ONE ×2 (11:29→13:26)
[2016-03-13 12:20] VITALS: TEMP 98.6
[2016-03-13] MEDS ORDERED: MIDAZOLAM HCL 2 MG/2 ML SINGLE DOSE VIAL ONE ×2 (14:33→14:46)
[2016-03-13] MEDS ORDERED: ceFAZolin SODIUM 1 GM VIAL ONE (15:06)
[2016-03-13] MEDS ORDERED: ONDANSETRON 4 MG/2 ML VIAL IVPB PRN (16:06)
[2016-03-13] MEDS ORDERED: oxyCODONE HCL 5 MG TABLET PO PRN ×2 (16:06)
[2016-03-13] MEDS ORDERED: LACTATED RINGERS SOLUTION 1,000 ML IV SCH (16:15)
[2016-03-13 17:05] VITALS: PULSE 65
[2016-03-13 17:07] VITALS: BP 96/62
--- NOTE | 2016-03-14 00:34 | OP ---
DATE OF OPERATION: 03/13/2016 PROCEDURE: Revision of right breast reconstruction for skin flap necrosis and evacuation of posttraumatic seroma. SURGEON: Chalo Terry MD PREOPERATIVE DIAGNOSIS: Skin flap necrosis and deformity of right breast reconstruction status post mastectomy from breast cancer and a residual seroma. ANESTHESIA: Monitored sedation with a total of 12 mL of 1% lidocaine plain. DESCRIPTION OF PROCEDURE: The patient is marked in the holding area. Risks, benefits, and alternatives of the procedure are discussed. The patient is brought to the operating room and placed in the supine position. The position was carefully checked by surgical anesthesia team. She was given 1 g of Ancef preoperatively. She was then prepped and draped in the standard surgical fashion. A timeout was called. The patient, procedure, site, and side verified. The necrotic skin that is well demarcated is marked. It is then excised down to the level of the pectoralis and serratus muscle closure. The subcutaneous and subfascial seroma is evacuated, roughly 50 mL. The mastectomy flaps are then reelevated. A plane is created between the pectoralis major muscle and serratus rectus muscles where the flaps can then be mobilized. A closure of the deep capsular tissue is then performed, after copious irrigation with a triple antibiotic solution, with a running 3-0 Vicryl suture, followed by a series of interrupted buried deep dermal 3-0 Monocryl suture, followed by a running 5-0 nylon suture. All tissues appear to have adequate capillary refill. The wounds were dressed with bacitracin, Xeroform, gauze, and a compressive tube-top. The patient was awoken from anesthesia and transferred to recovery without complication. CHALO TERRY M.D. [id number]
--- NOTE | 2016-03-17 15:23 | PATH ---
Surgical Pathology Report Patient Name: ARIES FELICIANO [facility]. Rec. #: [id number] /Age/Gender: 1950 (Age: 65) / F Account: [id number] Location: [facility] AM[facility] Taken: 03/13/2016 Received: 03/13/2016 Reported: 03/17/2016 Physicians: Philippe Landrum Specimen(s) Received MASTECTOMY SKIN RIGHT BREAST Clinical History Skin flap necrosis right breast Final Diagnosis SKIN, RIGHT BREAST MASTECTOMY, EXCISION: SKIN SHOWING ULCERATION WITH ACUTE NECROTIZING INFLAMMATION AND FAT NECROSIS. Electronically Signed Xi Spain M.D. Gross Description Received in formalin, labeled "mastectomy skin right breast," is a 12.0 x 2.3 cm abraham, elliptical, unoriented portion of skin excised to depth of 0.7 cm. The epidermal surface displays a focally necrotic appearing scar. Sectioning reveals suture material. Manager Ambulatory sections are submitted in 2 cassettes. /03/14/2016 saudi03/14/2016
== END 2016-03-13 16:55 | disposition home or self-care (01) ==
LOC: FASU 11:19
PROVIDERS: ATTEND Plastic Surgery
PROC: 0J960ZZ Drainage of Chest Subcutaneous Tissue and Fascia, Open Approach (ICD-10-PCS; 2016-03-13)
PROC: 0HRT37Z Replacement of Right Breast with Autologous Tissue Substitute, Percutaneous Approach (ICD-10-PCS; principal; 2016-03-13 15:02)
DX: N64.1 Fat necrosis of breast (principal); N65.0 Deformity of reconstructed breast; L76.34 Postprocedural seroma of skin and subcutaneous tissue following other procedure
CPT/HCPCS: 88304-TC

== ENCOUNTER 2016-03-25 09:30 | Day surgery (SDC) | payer OTHER ==
--- NOTE | 2016-03-19 16:47 | HP ---
Admitting History and Physical - Primary Care Physician PCP: Aretha Mendez - Admission Chief Complaint: Right breast cancer History of Present Illness: 65 year old female S/P right mastectomy ANDX application support administrator for moderatel;y differentiated invasive ductal carcinoma 1+ 21 nodes 02/26/2016. She needs life port for chemotherapy. History Source: Patient Limitations to Obtaining History: No Limitations - Past Medical History Cardiovascular: Yes: HTN Gastrointestinal: Yes: GERD Heme/Onc: Yes: Anemia, Cancer (breast CA ) Psych: Yes: Anxiety, Depression Endocrine: Yes: Diabetes Mellitus - Past Surgical History Past Surgical History: Yes: Appendectomy, Cholecystectomy, , Mastectomy (Right mastectomy ANDX application support administrator 2.5cm IDC,1+ 21 nodes), Tonsillectomy - Smoking History Smoking history: Former smoker Have you smoked in the past 12 months: Yes Aproximately how many cigarettes per day: 20 If you are a former smoker, when did you quit?: 02/07 - Alcohol/Substance Use Hx Alcohol Use: No Home Medications - Allergies Allergies/Adverse Reactions: Allergies Allergy/AdvReac Type Severity Reaction Status Date / Time No Known Drug Allergies Allergy Verified 03/13/16 12:19 - Home Medications Home Medications: Ambulatory Orders Alprazolam 0.5 mg PO DAILY 09/28/12 Ferrous Gluconate [Fergon -] 324 mg PO DAILY 09/28/12 Irbesartan [Avapro (Nf) -] 150 mg PO DAILY 09/28/12 Omeprazole [Prilosec (RX)] 20 mg PO DAILY 09/28/12 Citalopram Hydrobromide [Citalopram HBr] 20 mg PO DAILY 02/21/16 Glimepiride [Amaryl -] 4 mg PO HS 02/21/16 Metformin HCl 425 mg PO HS 02/21/16 Multivitamins [Multivit ([facility] Formulary)] 1 tab PO DAILY 02/21/16 Cefadroxil 500 mg PO BID #30 capsule 02/29/16 Acetaminophen [Pain Reliever] 500 mg PO ASDIR PRN 03/12/16 Family Disease History - Family Disease History Family Disease History: CA: Father (prostate cancer), Mother (uterine vs ovarian cancer), Sister (ovarian cancer) Physical Examination Constitutional: Yes: Well Nourished, No Distress Breast(s): Yes: Other (incision intact no signs of infection clean excosriation of central portion of both superior and inferior flaps being treated with Silvadene. application support administrator in place) Problem List - Problems (1) Breast cancer, right breast Code(s): C50.911 - MALIGNANT NEOPLASM OF UNSP SITE OF RIGHT FEMALE BREAST Qualifiers: Breast location: overlapping sites of breast Patient gender: female Qualified Code(s): C50.811 - Malignant neoplasm of overlapping sites of right female breast Assessment/Plan Life port insertion
[2016-03-24 11:56] VITALS: BMI 23.3
[2016-03-25] MEDS ORDERED: DEXTROSE 5%-0.45% SALINE 1,000 ML IV SCH (12:45)
[2016-03-25] MEDS ORDERED: PROPOFOL 20 ML ONE (12:54)
[2016-03-25] MEDS ORDERED: MIDAZOLAM HCL 2 MG/2 ML SINGLE DOSE VIAL ONE ×2 (12:54→13:47)
[2016-03-25] MEDS ORDERED: LIDOCAINE HCL/PF 2% SDV 5ML VIAL ONE (12:56)
[2016-03-25] MEDS ORDERED: KETOROLAC TROMETHAMINE 30 MG/1 ML VIAL IVPUSH PRN (13:00)
[2016-03-25] MEDS ORDERED: ONDANSETRON 4 MG/2 ML VIAL IVPB PRN (13:01)
[2016-03-25] MEDS ORDERED: HEPARIN NA (PORCINE) 5,000 UNITS/ML 1ML VIAL ONE (13:07)
[2016-03-25] MEDS ORDERED: LIDOCAINE HCL 1%, 10 MG/ML (20ML VIAL) ONE (13:08)
[2016-03-25] MEDS ORDERED: LIDOCAINE HCL 1%, 10 MG/ML (50 mL VIAL) IJ ONE (14:00)
[2016-03-25] MEDS ORDERED: HEPARIN NA (PORCINE) 5,000 UNITS/ML 1ML VIAL SQ ONE (14:15)
[2016-03-25 15:00] VITALS: TEMP 98
[2016-03-25 17:14] VITALS: BP 112/67; PULSE 82
--- NOTE | 2016-03-25 21:29 | OP ---
DATE OF OPERATION: 03/25/2016 PREOPERATIVE DIAGNOSIS: Right breast cancer. POSTOPERATIVE DIAGNOSIS: Right breast cancer. PROCEDURE: Left subclavian single-lumen LifePort placement. ANESTHESIA: IV sedation with local. ATTENDING SURGEON: Agatha Tsang MD EMERGENCY MEDICAL DISPATCHER: JAYME Thompson ESTIMATED BLOOD LOSS: Minimal. COMPLICATIONS: None. OPERATIVE REPORT: The patient was made aware of the risks and benefits of the procedure and consented. She was placed in the supine position. After IV sedation was administered, the operative site was prepped and draped in the usual sterile fashion and 1% lidocaine was used for local anesthesia. The left subclavian vein was equally localized and, using a Seldinger technique, the wire was placed using direct fluoroscopic control into the superior vena cava near the subclavian vein. An incision was made over the puncture site and inferolateral to the puncture site. Using electrocautery, a skin flap was made on the larger incision. The catheter was tunneled from the larger incision to the puncture site incision and fashioned to the proper length. The catheter was then connected to the port head, which was placed into the inferior pocket. An introducer and dilator, under direct fluoroscopic control, were placed over the wire and the wire and dilator were then removed. Catheter was placed through the introducer, the introducer was stripped away, and fluoroscopy showed the catheter to be in good position. There was easy withdrawal of blood and infusion of heparinized saline; 1 mL of heparinized saline was infused. The catheter was sutured to the deep tissues with 2-0 Prolene. The skin was then closed with deep 3-0 Vicryl, followed by a running subcuticular 4-0 Monocryl. Steri-Strips and a sterile bandage were then applied. The patient, having tolerated the procedure well, was transferred to the recovery room, where postprocedure chest x-ray revealed good catheter placement with no evidence of complication. AGATHA TSANG M.D. [id number]
== END 2016-03-25 16:35 | disposition home or self-care (01) ==
LOC: FASU 09:30
PROVIDERS: ATTEND Surgery Surgical Oncology
PROC: B518YZA Fluoroscopy of Superior Vena Cava using Other Contrast, Guidance (ICD-10-PCS; 2016-03-25)
PROC: 02HV33Z Insertion of Infusion Device into Superior Vena Cava, Percutaneous Approach (ICD-10-PCS; principal; 2016-03-25 14:01)
DX: C50.911 Malignant neoplasm of unspecified site of right female breast (principal); I10 Essential (primary) hypertension; E11.9 Type 2 diabetes mellitus without complications; K21.9 Gastro-esophageal reflux disease without esophagitis
CPT/HCPCS: 36561; 77001; C1751; 71010-TC; 76000-TC; J1644

== ENCOUNTER 2017-03-23 09:05 | Inpatient (IN) | payer OTHER ==
[2017-03-23] MEDS ORDERED: PROPOFOL 20 ML ONE ×2 (09:12)
[2017-03-23] MEDS ORDERED: MIDAZOLAM HCL 2 MG/2 ML SINGLE DOSE VIAL ONE (09:12)
[2017-03-23] MEDS ORDERED: HEPARIN NA (PORCINE) 5,000 UNITS/ML 1ML VIAL ONE (10:50)
[2017-03-23] MEDS ORDERED: HEPARIN NA (PORCINE) 5,000 UNITS/ML 1ML VIAL SQ ONE (11:18)
[2017-03-23] MEDS ORDERED: PROMETHAZINE HCL 25 MG/1 ML VIAL IVPB PRN ×2 (14:05→15:43)
[2017-03-23] MEDS ORDERED: HYDROmorphone HCL CARPU-JECT 1 MG/1 ML DISP.SYRIN IVPUSH PRN (14:05)
[2017-03-23] MEDS ORDERED: oxyCODONE HCL 5 MG TABLET PO PRN ×2 (14:05)
[2017-03-23] MEDS ORDERED: ONDANSETRON 4 MG/2 ML VIAL IVPUSH PRN ×2 (14:05→15:43)
[2017-03-23] MEDS ORDERED: ONDANSETRON 4 MG/2 ML VIAL IVPB PRN (15:37)
[2017-03-23] MEDS ORDERED: DEXAMETHASONE SOD PHOSPHATE 4 MG/1 ML VIAL IVPUSH ONE (15:43)
--- NOTE | 2017-03-23 15:51 | OP ---
Operative Note - Note: Operative Date: 03/23/17 Pre-Operative Diagnosis: right breast cancer Operation: right breast reconstruction with latissimus flap and tissue deep fryer assembler , right capsulectomy and existing implant removal Findings: above Post-Operative Diagnosis: Same as Pre-op
[2017-03-23] MEDS ORDERED: INSULIN (NOVOLOG) ASPART 100 UNITS/ML 10ML VIAL SQ ONE (15:58)
--- NOTE | 2017-03-23 16:01 | OP ---
Operative Note - Note: Operative Date: 03/23/17 Pre-Operative Diagnosis: right breast cancer Operation: right breast reconstruction with latissimus dorsi flap and tissue reception manager Implants: tissue reception manager Post-Operative Diagnosis: Same as Pre-op Surgeon: Philippe Landrum Resident Physician In Radiology: Audrey Galdamez Anesthesia: General Drains, Volume Out (mls): 3 Operative Report Dictated: Yes
[2017-03-23] MEDS: HYDROmorphone *PCA* 10MG/50ML DISP.SYRIN PCA SCH (18:06)
--- NOTE | 2017-03-23 20:27 | OP ---
DATE OF OPERATION: 03/23/2017 TITLE OF PROCEDURE: Right-sided excision of nonhealing wound to right mastectomy skin, open total capsulectomy with removal of existing tissue detective investigator, creation of pocket for transfer of right-sided latissimus dorsi myocutaneous flap, right-sided latissimus dorsi myocutaneous flap reconstruction, and placement of new tissue detective investigator to right reconstructed breast. ATTENDING SURGEON: Philippe Landrum MD RN PEDIATRIC ICU: JAYME Wilson ANESTHESIA: General endotracheal. The patient and family are counseled on all risks, benefits, and alternatives to the procedure, understood, and agreed to proceed. Patient is marked in the holding area, awake and aware of incisions and resulting scars. The patient is given a gram of Ancef preoperatively. Sequential compression stockings and MAYANK hose were applied. She was given 5000 units of subcutaneous heparin preoperatively. DESCRIPTION OF PROCEDURE: She is brought to the OR. After induction of general anesthesia, a Le catheter is placed. She is then carefully positioned by all surgical and anesthesia teams in a lateral position for access to the right side of the back as well as the right side of the front, chest. The patient is padded at all pressure points. A pillow is placed between the knees. Egg crates and an arm position pollock are placed, as well as an axillary roll. The patient is then prepped and draped in standard surgical fashion. Timeout is called. Patient, procedure, site, and sides are verified. At this point, the scar on the right mastectomy wound as well as the nonhealing radiation wound is excised. This is sent as mastectomy skin for pathology. Dissection is then carried down to the level of the periprosthetic capsule. A capsulotomy is performed, and the tissue detective investigator is then removed. A subcutaneous tunnel is then made into the right axilla which is then temporarily stapled. Attention is then directed toward the back. Incisions were then made along the premarked skin paddle. Incisions were made inferiorly and superiorly where the latissimus dorsi muscle is identified, and dissection is carried in a plane just superficial to the latissimus dorsi muscle. Medial and lateral edges of the muscle are identified, and a plane is then dissected deep to the muscle. The muscle is divided from its attachments along the iliac crest and reflected superiorly toward the pedicle. The flap is able to be mobilized. The pedicle is preserved. The humeral insertion of the latissimus dorsi tendon is divided to maximize mobilization. The tunnel is then completed into the axillary tunnel that was made from the anterior dissection, and atraumatically, the flap is then transferred into the mastectomy defect. Closure of the donor site is then performed over 2 size-10 flat IRVING drains, secured with 3-0 silk drain suture. A series of interrupted quilting sutures are used to close the space. This is done with a series of interrupted 0 Vicryl suture. Zane layer fascia is closed with series of interrupted, buried 0 Vicryl suture. Skin is then closed with a series of interrupted 3-0 Monocryl, buried deep dermal, followed by a running subcuticular 3-0 Monocryl suture. Wound is dressed with Steri-Strips. Drains are placed to bulb suction. Then, with all operative hands and Anesthesia, drapes are removed, and with full visualization of the patient, the patient is transferred to a supine position. Espinoza bag is removed. Axillary roll is removed. Position is carefully checked by surgical and anesthesia teams. All pressure points are carefully padded. The patient is then re-prepped and draped in the supine position. The flap had been protected by Ioban prior to turning. After re-prepping and draping, the flap was assessed to be robustly viable with good dermal bleeding. With the flap retracted out of the way, the residual capsulectomy is then performed, creating an ample space for the tissue detective investigator and flap. The existing mastectomy skin is then incised toward the inframammary fold, allowing the skin flap to fold. Inframammary fold is re-created with 2-0 PDS suture from the inferior skin flap to the chest wall. The pocket is then copiously irrigated with triple-antibiotic solution. A standard triple antibiotic is used. The tissue detective investigator is brought into the field. An Roadhop style 133 [id number] tissue detective investigator is oriented properly, placed at the inferior-most extent which had been marked preoperatively to correspond to the contralateral inframammary fold. The detective investigator is secured using its suture tabs with 2-0 PDS suture. The flap is then set in position. Hemostasis then meticulously achieved. A size 10 flat IRVING drain is brought out through a lateral stab wound incision, laid in the inferior recess of the wound, secured with a 3-0 silk drain suture. Flap is then inset with dermal sutures, a series of interrupted, buried, deep dermal 3-0 Monocryl suture, followed by a mid-dermal, running 3-0 PDS of V-Loc suture, followed by several 4-0 nylon sutures as needed. Dressings were placed with 4-0 nylon. The flap is with excellent capillary refill, pink and viable. Drains were placed to bulb suction. A loosely-fitting surgical bra is applied. Patient is awoken from anesthesia, transferred to Recovery without complication. Mata [id number]
[2017-03-23] MEDS: CEFAZOLIN 1 GM/D5W 1 GM/50 ML BAG IVPB SCH (20:44)
[2017-03-23] MEDS: INSULIN SLIDING SCALE (NOVOLOG) 1 VIAL SQ SCH (22:01)
[2017-03-24] MEDS: CEFAZOLIN 1 GM/D5W 1 GM/50 ML BAG IVPB SCH ×4 (03:28→21:08)
[2017-03-24] MEDS: INSULIN SLIDING SCALE (NOVOLOG) 1 VIAL SQ SCH ×5 (06:19→21:12)
[2017-03-24] MEDS ORDERED: NITROGLYCERIN 2% OINTMENT - 1GM PACKET TD ONE ×2 (07:39→08:15)
--- NOTE | 2017-03-24 07:47 | CONSULT ---
Consultation: REQUESTING PROVIDER: Dr Landrum CONSULT REQUEST: We have been asked to medically evaluate this patient for medical management. . HISTORY OF PRESENT ILLNESS: Patient is a 66 y/o female with a past medical history of hypertension, hyperlipidemia, right invasive ductal carcinoma. On , patient is s/p right breast reconstruction of skin flap necrosis and evaluation of post traumatic seroma, 03/23/17, patient is s/p right breast incision of non healing wound, Dr Landrum, POD #1, REVIEW OF SYSTEMS: CONSTITUTIONAL: Absent: fever, chills, diaphoresis, generalized weakness, malaise, loss of appetite, weight change HEENT: Absent: rhinorrhea, nasal congestion, throat pain, throat swelling, difficulty swallowing, mouth swelling, ear pain, eye pain, visual changes CARDIOVASCULAR: Absent: chest pain, syncope, palpitations, irregular heart rate, lightheadedness , peripheral edema RESPIRATORY: Absent: cough, shortness of breath, dyspnea with exertion, orthopnea, wheezing, stridor, hemoptysis GASTROINTESTINAL: Absent: abdominal pain, abdominal distension, nausea, vomiting, diarrhea, constipation, melena, hematochezia GENITOURINARY: Absent: dysuria, frequency, urgency, hesitancy, hematuria, flank pain, genital pain MUSCULOSKELETAL: Present: right breast pain Absent: myalgia, arthralgia, joint swelling, back pain, neck pain SKIN: Absent: rash, itching, pallor HEMATOLOGIC/IMMUNOLOGIC: Absent: easy bleeding, easy bruising, lymphadenopathy, frequent infections ENDOCRINE: Absent: unexplained weight gain, unexplained weight loss, heat intolerance, cold intolerance NEUROLOGIC: Absent: headache, focal weakness or paresthesias, dizziness, unsteady gait, seizure, mental status changes, bladder or bowel incontinence PSYCHIATRIC: Absent: anxiety, depression, suicidal or homicidal ideation, hallucinations. PHYSICAL EXAMINATION Vital Signs - 24 hr 03/23/17 03/23/17 03/23/17 09:28 09:30 15:35 Temperature 97.9 F 98.1 F Pulse Rate 96 H 99 H Respiratory 17 14 Rate Blood Pressure 106/72 82/57 O2 Sat by Pulse 97 97 100 Oximetry (%) 03/23/17 03/23/17 03/23/17 15:40 15:45 15:50 Temperature 98.1 F 98.1 F 98.1 F Pulse Rate 99 H 103 H 101 H Respiratory 14 16 15 Rate Blood Pressure 88/48 89/54 89/54 O2 Sat by Pulse 100 100 99 Oximetry (%) 03/23/17 03/23/17 03/23/17 15:55 16:05 16:20 Temperature 98.1 F 98.6 F Pulse Rate 99 H 99 H 96 H Respiratory 17 15 14 Rate Blood Pressure 94/54 94/54 85/48 O2 Sat by Pulse 94 L 94 L Oximetry (%) 03/23/17 03/23/17 03/23/17 16:25 16:35 17:31 Temperature 98.1 F 98.6 F Pulse Rate 90 90 87 Respiratory 14 18 18 Rate Blood Pressure 89/53 87/52 82/56 O2 Sat by Pulse 94 L 94 L Oximetry (%) 03/23/17 03/24/17 03/24/17 21:00 01:00 05:00 Temperature 98.3 F 98.1 F 97.8 F Pulse Rate 76 71 72 Respiratory 18 18 19 Rate Blood Pressure 98/59 91/50 87/54 O2 Sat by Pulse 99 98 95 Oximetry (%) GENERAL: Awake, alert, and fully oriented, in no acute distress. HEAD: Normal with no signs of trauma. EYES: Pupils equal, round and reactive to light, extraocular movements intact, sclera anicteric, conjunctiva clear. No lid lag. EARS, NOSE, THROAT: Ears normal, nares patent, oropharynx clear without exudates. Moist mucous membranes. NECK: Normal range of motion, supple without lymphadenopathy, JVD, or masses. LUNGS: Breath sounds equal, clear to auscultation bilaterally. No wheezes, and no crackles. No accessory muscle use. HEART: Regular rate and rhythm, normal S1 and S2 without murmur, rub or gallop. ABDOMEN: Soft, nontender, not distended, normoactive bowel sounds, no guarding, no rebound, no masses. No hepatomegaly or splenomegaly. MUSCULOSKELETAL: Normal range of motion at all joints. No bony deformities or tenderness. No CVA tenderness. UPPER EXTREMITIES: 2+ pulses, warm, well-perfused. No cyanosis. No clubbing. Cap refill <2 seconds. No peripheral edema. LOWER EXTREMITIES: 2+ pulses, warm, well-perfused. No calf tenderness. No peripheral edema. NEUROLOGICAL: Cranial nerves II-XII intact. Normal speech. Normal gait. PSYCHIATRIC: Cooperative. Good eye contact. Appropriate mood and affect. SKIN: right breast, steri -strips clean dry and intact, Warm, dry, normal turgor, no rashes or lesions noted. Laboratory Results - last 24 hr 03/23/17 03/23/17 03/23/17 09:35 15:54 21:58 POC Glucometer 190 237 221 03/24/17 06:00 POC Glucometer 163 Active Medications Generic Name Dose Route Start Last Admin Trade Name Freq PRN Reason Stop Dose Admin Alprazolam 0.5 mg 03/24/17 10:00 Xanax - PO DAILY [facility] Citalopram Hydrobromide 20 mg 03/24/17 10:00 Celexa - PO DAILY [facility] Fentanyl 25 mcg 03/23/17 14:05 Sublimaze Injection - IVPUSH [id number] PRN PAIN-PACU ORDER X 4 DOSES ONLY Fentanyl 50 mcg 03/23/17 14:05 Sublimaze Injection - IVPUSH [id number] PRN PAIN-PACU ORDER X 4 DOSES ONLY Heparin Sodium (Porcine) 5,000 unit 03/24/17 08:00 Heparin - SQ BID [facility] Hydromorphone HCl 0.5 mg 03/23/17 14:05 Dilaudid Injection - IVPUSH [id number] PRN PAIN-PACU ORDER X 4 DOSES ONLY Hydromorphone HCl 10 mg 03/23/17 15:45 03/23/17 18:06 Dilaudid Brilliandeer Lopper - POWER EQUIPMENT MECHANICS INSTRUCTOR 03/30/17 15:44 0.2 mg POWER EQUIPMENT MECHANICS INSTRUCTOR [facility] Administration Protocol Cefazolin Sodium 1 gm in 50 mls @ 100 mls/hr 03/23/17 21:00 03/24/17 03:28 Ancef 1 Gm Premixed Ivpb - IVPB 03/29/17 20:59 100 mls/hr Q6H-IV [facility] Administration Lactated Ringer's 1,000 mls @ 75 mls/hr 03/23/17 15:45 Lactated Ringers Solution IV ASDIR [facility] Insulin Aspart 1 vial 03/23/17 16:30 03/24/17 06:19 Novolog Vial Sliding Scale - SQ Not Given ACHS [facility] Protocol Losartan Potassium 50 mg 03/24/17 10:00 Cozaar - PO DAILY [facility] Metoprolol Succinate 25 mg 03/24/17 10:00 Toprol Xl - PO DAILY [facility] Multivitamins/Minerals/Vitamin C 1 tab 03/24/17 10:00 Tab-A-Vit - PO DAILY [facility] Ondansetron HCl 4 mg 03/23/17 14:05 Zofran Injection IVPUSH Q6H PRN NAUSEA AND/OR VOMITING Ondansetron HCl 8 mg 03/23/17 15:37 Zofran Injection IVPB Q6H PRN NAUSEA Ondansetron HCl 4 mg 03/23/17 15:43 Zofran Injection IVPUSH Q4H PRN NAUSEA AND/OR VOMITING Pantoprazole Sodium 20 mg 03/24/17 10:00 Protonix - PO DAILY [facility] Promethazine HCl 12.5 mg 03/23/17 14:05 Phenergan Injection - IVPB Q6H PRN NAUSEA-FOR RESCUE AFTER 15 MIN Promethazine HCl 12.5 mg 03/23/17 15:43 Phenergan Injection - IVPB Q6H PRN NAUSEA AND/OR VOMITING ASSESSMENT/PLAN: 1) heme/onc s/p right breast reconstruction with latissimus dorsi flap and tissue cover creaser (POD #1) - continue dilaudid POWER EQUIPMENT MECHANICS INSTRUCTOR - monitor cbc - incentive spirometer - Dr Landrum following 2) cardiovascular hypertension - hold toprol and cozar, due to labile blood pressure - continue b/p q4h 3) endo DM - continue fingersticks achs with regular insulin sliding scale Dispo: We will continue to follow the patient. Thank you for this consultative opportunity. Visit type - Emergency Visit Emergency Visit: No - New Patient This patient is new to me today: Yes Date on this admission: 03/24/17 - Critical Care Critical Care patient: No
[2017-03-24] MEDS: HEPARIN NA (PORCINE) 5,000 UNITS/ML 1ML VIAL SQ SCH ×2 (08:00→21:08)
[2017-03-24] MEDS: LACTATED RINGERS SOLUTION 1,000 ML IV SCH ×2 (08:42→16:04)
[2017-03-24] MEDS: ALPRAZolam 0.25 MG TABLET PO SCH (09:30)
[2017-03-24] MEDS: MULTIVITAMINS (DAILY MVI) TABLET (FP) PO SCH (09:32)
[2017-03-24] MEDS: PANTOPRAZOLE 20 MG TABLET (FP) PO SCH (09:33)
[2017-03-24] MEDS: CITALOPRAM HYDROBROMIDE 20 MG TABLET (FP) PO SCH (09:35)
[2017-03-24] MEDS ORDERED: metoPROLOL SUCCINATE 25 MG TAB.SR.24H (FP) PO SCH (10:00)
[2017-03-24] MEDS ORDERED: LOSARTAN POTASSIUM 50 MG TABLET (FP) PO SCH (10:00)
--- NOTE | 2017-03-24 10:06 | PN ---
Progress Note (short form) - Note Progress Note: 66F POD1 s/p right breast capsulotomy, latissimus dorsi flap with tissue, transport technician placement under GA-ETT with dilaudid IV LAMP CLE[address]RE[address] LIGHT for post operative pain management. Pt's pain ranges from 2/10 to 5/10, improves with LAMP CLE[address] LIGHT use. AVSS, BP meds being held secondary to slightly lower BP c/w pt's baseline. Pt reports no anesthetic complications. Continue dilaudid IV LAMP CLE[address] LIGHT at this time. Will follow.
[2017-03-24 11:46] LABS: BASO % 0.4 % (0-2.0); EOS % 0.3 % (0-4.5); HEMATOCRIT 33.5 % (32.4-45.2); HEMOGLOBIN 10.7 GM/dl (10.7-15.3); LYMPH % 18.4 % (8-40); MCH 27.3 pg (25.7-33.7); MEAN CELL VOLUME 85.5 fl (80-96); MEAN PLT VOLUME 9.4 fl (7.5-11.1); MONO % 6.6 % (3.8-10.2); NEUT % 74.3 % (42.8-82.8); PLATELET COUNT 264 K/MM3 (134-434); RBC 3.92 M/mm3 (3.60-5.2); RDW 13.9 % (11.6-15.6); WHITE BLOOD COUNT 8.8 K/mm3 (4.0-10.8)
[2017-03-24 12:17] LABS: ALBUMIN 3.4 g/dl (3.5-5.0); ALK PHOS 74 U/L (32-92); ANION GAP 7 (8-16); BILIRUBIN,TOTAL 0.5 mg/dl (0.2-1.0); BLOOD UREA NITROGEN 9 mg/dl (7-18); CALCIUM 8.3 mg/dl (8.4-10.2); CHLORIDE 101 mmol/L (98-107); CO2 19 mmol/L (22-28); CREATININE 0.5 mg/dl (0.6-1.3); GLUCOSE,RANDOM 238 mg/dl (74-106); MAGNESIUM 1.4 mg/dL (1.8-2.4); PHOSPHOROUS 3.3 mg/dl (2.5-4.6); POTASSIUM 3.8 mmol/L (3.5-5.1); SGOT/AST 81 U/L (10-42); SGPT/ALT 90 U/L (10-40); SODIUM 127 mmol/L (136-145); TOT PROT 6.5 g/dl (6.4-8.3)
[2017-03-24] MEDS ORDERED: MAGNESIUM SULFATE 2 GM in SODIUM CHLORIDE 100 ML IVPB ONE (12:29)
[2017-03-24] MEDS ORDERED: MAGNESIUM SULF 50% (8.12 MEQ/2 ML-1 GM VIAL) IVPB ONE (13:00)
[2017-03-24] MEDS: HYDROmorphone *PCA* 10MG/50ML DISP.SYRIN PCA SCH (16:05)
[2017-03-24] MEDS ORDERED: INSULIN (NOVOLOG) ASPART 100 UNITS/ML 10ML VIAL ONE (16:36)
[2017-03-24 18:45] LABS: ALBUMIN 3.5 g/dl (3.5-5.0); ALK PHOS 73 U/L (32-92); ANION GAP 5 (8-16); BILIRUBIN,TOTAL 0.3 mg/dl (0.2-1.0); BLOOD UREA NITROGEN 7 mg/dl (7-18); CALCIUM 8.4 mg/dl (8.4-10.2); CHLORIDE 100 mmol/L (98-107); CO2 21 mmol/L (22-28); CREATININE 0.5 mg/dl (0.6-1.3); GLUCOSE,RANDOM 187 mg/dl (74-106); POTASSIUM 3.6 mmol/L (3.5-5.1); SGOT/AST 61 U/L (10-42); SGPT/ALT 72 U/L (10-40); SODIUM 126 mmol/L (136-145); TOT PROT 6.9 g/dl (6.4-8.3)
[2017-03-24] MEDS ORDERED: SODIUM CHLORIDE 1,000 ML IV SCH (20:00)
[2017-03-24 23:29] LABS: ANION GAP 2 (8-16); BLOOD UREA NITROGEN 6 mg/dl (7-18); CHLORIDE 102 mmol/L (98-107); CO2 23 mmol/L (22-28); CREATININE 0.4 mg/dl (0.6-1.3); GLUCOSE,RANDOM 180 mg/dl (74-106); POTASSIUM 3.5 mmol/L (3.5-5.1); SODIUM 127 mmol/L (136-145)
[2017-03-25] MEDS: CEFAZOLIN 1 GM/D5W 1 GM/50 ML BAG IVPB SCH ×2 (02:30→09:39)
[2017-03-25 03:39] LABS: ANION GAP 9 (8-16); BLOOD UREA NITROGEN 5 mg/dL (7-18); CALCIUM 8.2 mg/dL (8.5-10.1); CHLORIDE 103 mmol/L (98-107); CO2 24 mmol/L (21-32); CREATININE 0.4 mg/dL (0.55-1.02); GLUCOSE,RANDOM 185 mg/dL (74-106); POTASSIUM 3.8 mmol/L (3.5-5.1); SODIUM 136 mmol/L (136-145)
[2017-03-25 05:56] VITALS: BP 109/64; PULSE 85; TEMP 99.7
[2017-03-25] MEDS: INSULIN SLIDING SCALE (NOVOLOG) 1 VIAL SQ SCH (06:26)
--- NOTE | 2017-03-25 09:12 | PN ---
Progress Note (short form) - Note Progress Note: POD 2 VSS AF REpeating labs for low sodium. last value normal 136. Flap viable with infralateral corner 15% appearing underperfused. 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
[2017-03-25] MEDS: CITALOPRAM HYDROBROMIDE 20 MG TABLET (FP) PO SCH (09:34)
[2017-03-25] MEDS: PANTOPRAZOLE 20 MG TABLET (FP) PO SCH (09:35)
[2017-03-25] MEDS: ALPRAZolam 0.25 MG TABLET PO SCH ×2 (09:35→09:38)
[2017-03-25] MEDS: MULTIVITAMINS (DAILY MVI) TABLET (FP) PO SCH (09:35)
--- NOTE | 2017-03-25 09:47 | CONSULT ---
Consult Consult Specialty:: Nephrology Reason for Consultation:: hyponatremia - History of Present Illness Chief Complaint: s/p breast reconstruction History of Present Illness: Pt is a 66 year old female with pmhx of hyperlipidemia, DM, HTN, and breast cancer who is s/p breast reconstruction. I was called to evaluate her for hyponatremia. She denies history of hyponatremia. She says she has not had much appetite and has been drinking water. She complains of discomfort after surgery. Her sodium has been slowly improving. She denies loss of balance or headache. - History Source History Provided By: Patient, Medical Record - Past Medical History Cardio/Vascular: Yes: HTN Gastrointestinal: Yes: GERD Heme/Onc: Yes: Cancer, Other (breast cancer) Psych: Yes: Anxiety, Depression Endocrine: Yes: Diabetes Mellitus - Past Surgical History Past Surgical History: Yes: Appendectomy, Cholecystectomy, , Mastectomy (Right mastectomy ANDX lumber sorter 2.5cm IDC,1+ 21 nodes), Tonsillectomy Additional Surgical History: breast reconstruction - Alcohol/Substance Use Hx Alcohol Use: No - Smoking History Smoking history: Former smoker Have you smoked in the past 12 months: Yes Aproximately how many cigarettes per day: 20 If you are a former smoker, when did you quit?: 02/07 Home Medications - Allergies Allergies/Adverse Reactions: Allergies Allergy/AdvReac Type Severity Reaction Status Date / Time No Known Drug Allergies Allergy Verified 03/23/17 10:10 - Home Medications Home Medications: Ambulatory Orders Alprazolam 0.5 mg PO DAILY 09/28/12 Irbesartan [Avapro (Nf) -] 150 mg PO DAILY 09/28/12 Omeprazole [Prilosec (RX)] 20 mg PO HS 09/28/12 Citalopram Hydrobromide [Citalopram HBr] 20 mg PO DAILY 02/21/16 Multivitamins [Multivit ([facility] Formulary)] 1 tab PO DAILY 02/21/16 Linagliptin [Tradjenta] 5 mg PO DAILY 03/16/17 Metformin HCl [Glucophage] 1,000 mg PO BID 03/16/17 Metoprolol Succinate [Toprol Xl -] 25 mg PO DAILY 03/16/17 Sulfamethoxazole/Trimethoprim [Bactrim Ds -] 1 tab PO DAILY 03/16/17 Family Disease History - Family Disease History Family Disease History: CA: Father (prostate cancer), Mother (uterine vs ovarian cancer), Sister (ovarian cancer) Review of Systems - Review of Systems Constitutional: reports: No Symptoms Eyes: reports: No Symptoms HENT: reports: No Symptoms Neck: reports: No Symptoms Cardiovascular: reports: No Symptoms Respiratory: reports: No Symptoms Gastrointestinal: reports: No Symptoms Genitourinary: reports: No Symptoms Breasts: reports: Other (s/p breast reconstruction, has J/p drains) Musculoskeletal: reports: No Symptoms Integumentary: reports: No Symptoms Neurological: reports: No Symptoms Endocrine: reports: No Symptoms Hematology/Lymphatic: reports: No Symptoms Physical Exam Vital Signs: Vital Signs Temperature 99.7 F H 03/25/17 05:54 Pulse Rate 85 03/25/17 05:54 Respiratory Rate 18 03/25/17 05:54 Blood Pressure 109/64 03/25/17 05:54 O2 Sat by Pulse Oximetry (%) 92 L 03/25/17 05:54 Constitutional: Yes: Calm Eyes: Yes: Conjunctiva Clear HENT: Yes: Atraumatic Neck: Yes: Supple Cardiovascular: Yes: S1, S2 Respiratory: Yes: CTA Bilaterally Gastrointestinal: Yes: Normal Bowel Sounds, Soft Renal/: Yes: WNL Breast(s): Yes: Other (s/p breast reconstruction has j/p drains) Musculoskeletal: Yes: WNL Edema: No Neurological: Yes: Oriented Psychiatric: Yes: Oriented Labs: CBC, BMP 03/24/17 10:05 03/25/17 03:00 Laboratory Tests 02/21/16 02/26/16 02/26/16 09:03 20:40 22:37 WBC Hgb Plt Count Sodium 134 L 131 L 131 L Potassium Chloride Carbon Dioxide Anion Gap BUN Creatinine Random Glucose Calcium AST ALT 02/27/16 03/24/17 03/24/17 06:45 10:05 18:05 WBC 8.8 D Hgb 10.7 D Plt Count 264 Sodium 139 126 L Potassium Chloride Carbon Dioxide Anion Gap BUN Creatinine Random Glucose Calcium AST 61 H D ALT 72 H 03/24/17 03/25/17 03/25/17 23:00 03:00 09:46 WBC Hgb Plt Count Sodium 127 L 136 128 L Potassium 3.2 L Chloride 102 Carbon Dioxide 21 L Anion Gap 5 L BUN 4 L D Creatinine 0.4 L 0.4 L 0.5 L D Random Glucose 237 H D Calcium 7.9 L AST ALT Problem List - Problems (1) Hyponatremia Code(s): E87.1 - HYPO-OSMOLALITY AND HYPONATREMIA (2) Diabetes mellitus Code(s): E11.9 - TYPE 2 DIABETES MELLITUS WITHOUT COMPLICATIONS (3) Anxiety Code(s): F41.9 - ANXIETY DISORDER, UNSPECIFIED (4) Hypertension Code(s): I10 - ESSENTIAL (PRIMARY) HYPERTENSION (5) Breast cancer, right breast Code(s): C50.911 - MALIGNANT NEOPLASM OF UNSP SITE OF RIGHT FEMALE BREAST Qualifiers: Breast location: overlapping sites of breast Qualified Code(s): C50.811 - Malignant neoplasm of overlapping sites of right female breast Assessment/Plan Current Medications Generic Name Dose Route Start Last Admin Trade Name Freq PRN Reason Stop Dose Admin Alprazolam 0.5 mg 03/24/17 10:00 03/25/17 09:38 Xanax - PO 0.5 mg DAILY AUGIE Administration Citalopram Hydrobromide 20 mg 03/24/17 10:00 03/25/17 09:34 Celexa - PO 20 mg DAILY AUGIE Administration Enoxaparin Sodium 40 mg 03/25/17 10:00 Lovenox - SQ DAILY AUGIE Hydromorphone HCl 10 mg 03/23/17 15:45 03/24/17 16:05 Dilaudid Vat Packer - CAR REPAIRER HELPER 03/30/17 15:44 10 mg CAR REPAIRER HELPER AUGIE Administration Protocol Cefazolin Sodium 1 gm in 50 mls @ 100 mls/hr 03/23/17 21:00 03/25/17 09:39 Ancef 1 Gm Premixed Ivpb - IVPB 03/29/17 20:59 100 mls/hr Q6H-IV AUGIE Administration Insulin Aspart 1 vial 03/23/17 16:30 03/25/17 06:26 Novolog Vial Sliding Scale - SQ Not Given ACHS AUGIE Protocol Losartan Potassium 50 mg 03/24/17 10:00 Cozaar - PO DAILY AUGIE Metoprolol Succinate 25 mg 03/24/17 10:00 Toprol Xl - PO DAILY AUGIE Multivitamins/Minerals/Vitamin C 1 tab 03/24/17 10:00 03/25/17 09:35 Tab-A-Vit - PO 1 tab DAILY AUGIE Administration Ondansetron HCl 4 mg 03/23/17 14:05 Zofran Injection IVPUSH Q6H PRN NAUSEA AND/OR VOMITING Ondansetron HCl 8 mg 03/23/17 15:37 Zofran Injection IVPB Q6H PRN NAUSEA Ondansetron HCl 4 mg 03/23/17 15:43 Zofran Injection IVPUSH Q4H PRN NAUSEA AND/OR VOMITING Pantoprazole Sodium 20 mg 03/24/17 10:00 03/25/17 09:35 Protonix - PO 20 mg DAILY AUGIE Administration Promethazine HCl 12.5 mg 03/23/17 15:43 Phenergan Injection - IVPB Q6H PRN NAUSEA AND/OR VOMITING Impression 1. hyponatremia 2. s/p breast reconstruction 3. DM 4. HTN 5. anxiety Plan - sodium is slowly improving - check ua, urine lytes, plasma and urine osm - hold cozaar as bp is low - restart saline - monitor sodium level - will follow Dr William
[2017-03-25] MEDS ORDERED: ENOXAPARIN NA (PORCINE) 40 MG/0.4 ML DISP.SYRIN SQ SCH (10:00)
[2017-03-25 11:26] LABS: ANION GAP 5 (8-16); BLOOD UREA NITROGEN 4 mg/dl (7-18); CALCIUM 7.9 mg/dl (8.4-10.2); CHLORIDE 102 mmol/L (98-107); CO2 21 mmol/L (22-28); CREATININE 0.5 mg/dl (0.6-1.3); GLUCOSE,RANDOM 237 mg/dl (74-106); POTASSIUM 3.2 mmol/L (3.5-5.1); SODIUM 128 mmol/L (136-145)
--- NOTE | 2017-03-25 11:35 | PN ---
Physical Exam: SUBJECTIVE: Patient seen and examined OBJECTIVE: Vital Signs Period Temp Pulse Resp BP Sys/Issa Pulse Ox Last 24 Hr 98.8 F-99.7 F 70-91 16-18 98-109/57-64 92-93 GENERAL: The patient is awake, alert, and fully oriented, in no acute distress. HEAD: Normal with no signs of trauma. EYES: PERRL, extraocular movements intact, sclera anicteric, conjunctiva clear. No ptosis. ENT: Ears normal, nares patent, oropharynx clear without exudates, moist mucous membranes. NECK: Trachea midline, full range of motion, supple. LUNGS: Breath sounds equal, clear to auscultation bilaterally, no wheezes, no crackles, no accessory muscle use. HEART: Regular rate and rhythm, S1, S2 without murmur, rub or gallop. ABDOMEN: Soft, nontender, nondistended, normoactive bowel sounds, no guarding, no rebound, no hepatosplenomegaly, no masses. EXTREMITIES: 2+ pulses, warm, well-perfused, no edema. NEUROLOGICAL: Cranial nerves II through XII grossly intact. Normal speech, gait not observed. PSYCH: Normal mood, normal affect. SKIN: Warm, dry, normal turgor, no rashes or lesions noted Laboratory Results - last 24 hr 03/24/17 03/24/17 03/24/17 10:05 10:05 11:18 WBC 8.8 D RBC 3.92 D Hgb 10.7 D Hct 33.5 D MCV 85.5 MCH 27.3 D MCHC 32.0 RDW 13.9 D Plt Count 264 MPV 9.4 Neutrophils % 74.3 Lymphocytes % 18.4 Monocytes % 6.6 Eosinophils % 0.3 Basophils % 0.4 Sodium 127 L Potassium 3.8 Chloride 101 Carbon Dioxide 19 L Anion Gap 7 L BUN 9 D Creatinine 0.5 L Creat Clearance w eGFR > 60 POC Glucometer 237 Random Glucose 238 H Calcium 8.3 L Phosphorus 3.3 D Magnesium 1.4 L Total Bilirubin 0.5 D AST 81 H D ALT 90 H D Alkaline Phosphatase 74 D Total Protein 6.5 Albumin 3.4 L 03/24/17 03/24/17 03/24/17 16:20 18:05 21:07 WBC RBC Hgb Hct MCV MCH MCHC RDW Plt Count MPV Neutrophils % Lymphocytes % Monocytes % Eosinophils % Basophils % Sodium 126 L Potassium 3.6 Chloride 100 Carbon Dioxide 21 L Anion Gap 5 L BUN 7 D Creatinine 0.5 L Creat Clearance w eGFR > 60 POC Glucometer 240 163 Random Glucose 187 H D Calcium 8.4 Phosphorus Magnesium Total Bilirubin 0.3 D AST 61 H D ALT 72 H Alkaline Phosphatase 73 Total Protein 6.9 Albumin 3.5 03/24/17 03/25/17 03/25/17 23:00 03:00 06:04 WBC RBC Hgb Hct MCV MCH MCHC RDW Plt Count MPV Neutrophils % Lymphocytes % Monocytes % Eosinophils % Basophils % Sodium 127 L 136 Potassium 3.5 3.8 Chloride 102 103 Carbon Dioxide 23 24 Anion Gap 2 L 9 BUN 6 L 5 L Creatinine 0.4 L 0.4 L Creat Clearance w eGFR POC Glucometer 199 Random Glucose 180 H 185 H Calcium 8.0 L 8.2 L Phosphorus Magnesium Total Bilirubin AST ALT Alkaline Phosphatase Total Protein Albumin 03/25/17 09:46 WBC RBC Hgb Hct MCV MCH MCHC RDW Plt Count MPV Neutrophils % Lymphocytes % Monocytes % Eosinophils % Basophils % Sodium 128 L Potassium 3.2 L Chloride 102 Carbon Dioxide 21 L Anion Gap 5 L BUN 4 L D Creatinine 0.5 L D Creat Clearance w eGFR POC Glucometer Random Glucose 237 H D Calcium 7.9 L Phosphorus Magnesium Total Bilirubin AST ALT Alkaline Phosphatase Total Protein Albumin Active Medications Generic Name Dose Route Start Last Admin Trade Name Freq PRN Reason Stop Dose Admin Alprazolam 0.5 mg 03/24/17 10:00 03/25/17 09:38 Xanax - PO 0.5 mg DAILY AUGIE Administration Citalopram Hydrobromide 20 mg 03/24/17 10:00 03/25/17 09:34 Celexa - PO 20 mg DAILY AUGIE Administration Enoxaparin Sodium 40 mg 03/25/17 10:00 Lovenox - SQ DAILY AUGIE Hydromorphone HCl 10 mg 03/23/17 15:45 03/24/17 16:05 Dilaudid Oral Surgery Physician - SLUMBER ROOM ATTENDANT 03/30/17 15:44 10 mg SLUMBER ROOM ATTENDANT AUGIE Administration Protocol Cefazolin Sodium 1 gm in 50 mls @ 100 mls/hr 03/23/17 21:00 03/25/17 09:39 Ancef 1 Gm Premixed Ivpb - IVPB 03/29/17 20:59 100 mls/hr Q6H-IV AUGIE Administration Sodium Chloride 1,000 mls @ 75 mls/hr 03/25/17 11:45 Normal Saline - IV ASDIR AUGIE Insulin Aspart 1 vial 03/23/17 16:30 03/25/17 06:26 Novolog Vial Sliding Scale - SQ Not Given ACHS AUGIE Protocol Losartan Potassium 50 mg 03/24/17 10:00 Cozaar - PO DAILY AUGIE Metoprolol Succinate 25 mg 03/24/17 10:00 Toprol Xl - PO DAILY AUGIE Multivitamins/Minerals/Vitamin C 1 tab 03/24/17 10:00 03/25/17 09:35 Tab-A-Vit - PO 1 tab DAILY AUGIE Administration Ondansetron HCl 4 mg 03/23/17 14:05 Zofran Injection IVPUSH Q6H PRN NAUSEA AND/OR VOMITING Ondansetron HCl 8 mg 03/23/17 15:37 Zofran Injection IVPB Q6H PRN NAUSEA Ondansetron HCl 4 mg 03/23/17 15:43 Zofran Injection IVPUSH Q4H PRN NAUSEA AND/OR VOMITING Pantoprazole Sodium 20 mg 03/24/17 10:00 03/25/17 09:35 Protonix - PO 20 mg DAILY AUGIE Administration Promethazine HCl 12.5 mg 03/23/17 15:43 Phenergan Injection - IVPB Q6H PRN NAUSEA AND/OR VOMITING ASSESSMENT/PLAN: Na @ 1:30 bumped to 136, recheck Na 11:00am 128 Resume Na @ 75mL/hr, recheck Na in 4 hours
[2017-03-25] MEDS ORDERED: SODIUM CHLORIDE 1,000 ML IV SCH ×2 (11:45→12:00)
--- NOTE | 2017-03-25 13:44 | SURG ---
Surgery National Coverage Specialist Note National Coverage Specialist: Audrey Galdamez PA-C Date of Service: 03/23/17 Diagnosis: right breast cancer Procedure: right breast reconstruction with latissmus flap adn tissue machine attendant , right capsulotomy and existing implant removal I was present for the entirety of the operative procedure. For further detail, please refer to operative report. Visit type - Case Type Case Type: Scheduled Admission - Emergency Emergency Visit: No - New patient This patient is new to me today: Yes Date on this admission: 03/23/17
[2017-03-25 16:18] LABS: ANION GAP 5 (8-16); BLOOD UREA NITROGEN 3 mg/dl (7-18); CALCIUM 8.2 mg/dl (8.4-10.2); CHLORIDE 104 mmol/L (98-107); CO2 20 mmol/L (22-28); CREATININE 0.4 mg/dl (0.6-1.3); GLUCOSE,RANDOM 196 mg/dl (74-106); POTASSIUM 3.3 mmol/L (3.5-5.1); SODIUM 129 mmol/L (136-145)
[2017-03-25 16:26] LABS: URINE APPEARANCE Clear; URINE BILIRUBIN Negative (NEGATIVE); URINE BLOOD Negative (NEGATIVE); URINE COLOR YELLOW; URINE GLUCOSE (UA) Negative (NEGATIVE); URINE KETONE Negative (NEGATIVE); URINE LEUK ESTERASE Negative (NEGATIVE); URINE NITRITE Negative (NEGATIVE); URINE PROTEIN Negative (NEGATIVE); URINE UROBILINOGEN 0.2 (0.2-1.0)
--- NOTE | 2017-03-25 16:31 | DS ---
Physical Exam: SUBJECTIVE: Patient seen and examined OBJECTIVE: Vital Signs Period Temp Pulse Resp BP Sys/Issa Pulse Ox Last 24 Hr 99.4 F-99.7 F 85-91 18-18 98-109/62-64 92-93 PHYSICAL EXAM GENERAL: The patient is awake, alert, and fully oriented, in no acute distress. HEAD: Normal with no signs of trauma. EYES: PERRL, extraocular movements intact, sclera anicteric, conjunctiva clear. ENT: Ears normal, nares patent, oropharynx clear without exudates, moist mucous membranes. NECK: Trachea midline, full range of motion, supple. LUNGS: Breath sounds equal, clear to auscultation bilaterally, no wheezes, no crackles, no accessory muscle use. HEART: Regular rate and rhythm, S1, S2 without murmur, rub or gallop. ABDOMEN: Soft, nontender, nondistended, normoactive bowel sounds, no guarding, no rebound, no hepatosplenomegaly, no masses. EXTREMITIES: 2+ pulses, warm, well-perfused, no edema. NEUROLOGICAL: Cranial nerves II through XII grossly intact. Normal speech, gait not observed. PSYCH: Normal mood, normal affect. SKIN: Warm, dry, normal turgor, no rashes or lesions noted. LABS Laboratory Results - last 24 hr 03/24/17 03/24/17 03/24/17 16:20 18:05 21:07 Sodium 126 L Potassium 3.6 Chloride 100 Carbon Dioxide 21 L Anion Gap 5 L BUN 7 D Creatinine 0.5 L Creat Clearance w eGFR > 60 POC Glucometer 240 163 Random Glucose 187 H D Calcium 8.4 Total Bilirubin 0.3 D AST 61 H D ALT 72 H Alkaline Phosphatase 73 Total Protein 6.9 Albumin 3.5 Urine Color Urine Appearance Urine pH Ur Specific [place] Urine Protein Urine Glucose (UA) Urine Ketones Urine Blood Urine Nitrite Urine Bilirubin Urine Urobilinogen Ur Leukocyte Esterase 03/24/17 03/25/17 03/25/17 23:00 03:00 06:04 Sodium 127 L 136 Potassium 3.5 3.8 Chloride 102 103 Carbon Dioxide 23 24 Anion Gap 2 L 9 BUN 6 L 5 L Creatinine 0.4 L 0.4 L Creat Clearance w eGFR POC Glucometer 199 Random Glucose 180 H 185 H Calcium 8.0 L 8.2 L Total Bilirubin AST ALT Alkaline Phosphatase Total Protein Albumin Urine Color Urine Appearance Urine pH Ur Specific [place] Urine Protein Urine Glucose (UA) Urine Ketones Urine Blood Urine Nitrite Urine Bilirubin Urine Urobilinogen Ur Leukocyte Esterase 03/25/17 03/25/17 03/25/17 09:46 15:26 15:50 Sodium 128 L 129 L Potassium 3.2 L 3.3 L Chloride 102 104 Carbon Dioxide 21 L 20 L Anion Gap 5 L 5 L BUN 4 L D 3 L D Creatinine 0.5 L D 0.4 L Creat Clearance w eGFR POC Glucometer Random Glucose 237 H D 196 H Calcium 7.9 L 8.2 L Total Bilirubin AST ALT Alkaline Phosphatase Total Protein Albumin Urine Color Yellow Urine Appearance Clear Urine pH 7.0 Ur Specific [place] 1.010 Urine Protein Negative Urine Glucose (UA) Negative Urine Ketones Negative Urine Blood Negative Urine Nitrite Negative Urine Bilirubin Negative Urine Urobilinogen 0.2 Ur Leukocyte Esterase Negative HOSPITAL COURSE: Date of Admission:03/24/17 Date of Discharge: 03/25/17 Na @ 1:30 bumped to 136, recheck Na 11:00am 128 Resume Na @ 75mL/hr, recheck Na in 4 hours Discharge Summary Reason For Visit: RIGHT BREAST RECONSTRUCTION Current Active Problems Anxiety (Acute) Diabetes mellitus (Acute) Hypertension (Acute) Hyponatremia (Acute) Condition: Improved - Instructions Diet, Activity, Other Instructions: diabetic diet, teach IRVING care, leave all dressings on and dry until follow up, absolutely no bra, compression to under-arms, call for follow up in thursday Referrals: Henry Landrum [Non Staff, Medical] - Disposition: VNS/HOME HEALTH CARE - Home Medications Comprehensive Discharge Medication List: Ambulatory Orders Alprazolam 0.5 mg PO DAILY 09/28/12 Irbesartan [Avapro (Nf) -] 150 mg PO DAILY 09/28/12 Omeprazole [Prilosec (RX)] 20 mg PO HS 09/28/12 Citalopram Hydrobromide [Citalopram HBr] 20 mg PO DAILY 02/21/16 Multivitamins [Multivit ([facility] Formulary)] 1 tab PO DAILY 02/21/16 Linagliptin [Tradjenta] 5 mg PO DAILY 03/16/17 Metformin HCl [Glucophage] 1,000 mg PO BID 03/16/17 Metoprolol Succinate [Toprol Xl -] 25 mg PO DAILY 03/16/17 Sulfamethoxazole/Trimethoprim [Bactrim Ds -] 1 tab PO DAILY 03/16/17
--- NOTE | 2017-04-01 16:26 | PATH ---
Surgical Pathology Report Patient Name: ARIES FELICIANO [facility]. Rec. #: [id number] /Age/Gender: 1950 (Age: 66) / F Account: <[id number]> Location: [facility] AMBUL[facility] Taken: 03/23/2017 Received: 03/23/2017 Reported: 04/01/2017 Physicians: Philippe Landrum Specimen(s) Received A: RIGHT BREAST TISSUE WIRELESS SALES ASSOCIATE B: RIGHT BREAST MASTECTOMY SKIN C: RIGHT BREAST CAPSULE Clinical History Right breast cancer Final Diagnosis A. TISSUE WIRELESS SALES ASSOCIATE, RIGHT BREAST, REMOVAL: TISSUE WIRELESS SALES ASSOCIATE, DESCRIBED (GROSS EXAMINATION ONLY). B. SKIN, MASTECTOMY, RIGHT BREAST, EXCISION: SKIN SHOWING ULCERATION WITH ACUTE AND CHRONIC INFLAMMATION. FIBROADIPOSE TISSUE SHOWING FAT NECROSIS AND CHANGES OF PRIOR PROCEDURE. C. CAPSULE, RIGHT BREAST, CAPSULECTOMY: FIBROUS CAPSULE. Electronically Signed Xi Spain M.D. Gross Description A. Received fresh labeled "right breast tissue certified procedural coder," is a 14.5 x 11.5 x 2.0 cm abraham foreign body, consistent with a breast tissue certified procedural coder. No soft tissue is present. No sections are submitted, gross only. B. Received in formalin labeled "right breast mastectomy skin," are 3 abraham brown, irregular, unoriented portions of skin with underlying soft tissue ranging from 6.5 x 1.5 cm to 7.4 x 3.8 cm. The epidermal surfaces are focally ulcerated and display multifocal areas of pigment loss. Steam Conditioner Filling sections are submitted in one cassette. C. Received in formalin labeled "right breast capsule," is a 10.0 x 7.0 x 0.3 cm aggregate of multiple abraham, irregular portions of firm fibrous tissue, consistent with portions of a fibrous capsule. No discrete masses are identified. Steam Conditioner Filling sections are submitted in one cassette. DL/03/24/2017 saudi03/24/2017
== END 2017-03-25 17:15 | disposition home health service (06) | DRG 908 ==
LOC: FASU 09:05 → EDSTATUS 10:30 → FASU 17:15 → FM/S 17:15
PROVIDERS: ADMIT Plastic Surgery; ATTEND Plastic Surgery
PROC: 0KXF0Z5 Transfer Right Trunk Muscle, Latissimus Dorsi Myocutaneous Flap, Open Approach (ICD-10-PCS; 2017-03-23)
PROC: 0HPT0JZ Removal of Synthetic Substitute from Right Breast, Open Approach (ICD-10-PCS; 2017-03-23)
PROC: 0HRT0JZ Replacement of Right Breast with Synthetic Substitute, Open Approach (ICD-10-PCS; 2017-03-23)
PROC: 0HHT0NZ Insertion of Tissue Expander into Right Breast, Open Approach (ICD-10-PCS; principal; 2017-03-23 11:35)
PROC: 0HPT0NZ Removal of Tissue Expander from Right Breast, Open Approach (ICD-10-PCS; 2017-03-23 11:35)
DX: T85.9XXA Unspecified complication of internal prosthetic device, implant and graft, initial encounter (principal); E87.1 Hypo-osmolality and hyponatremia; Y83.9 Surgical procedure, unspecified as the cause of abnormal reaction of the patient, or of later complication, without mention of misadventure at the time of the procedure; C50.911 Malignant neoplasm of unspecified site of right female breast; I10 Essential (primary) hypertension; E11.9 Type 2 diabetes mellitus without complications; F41.9 Anxiety disorder, unspecified; E78.5 Hyperlipidemia, unspecified
CPT/HCPCS: 36415; 80048; 80053; 81003; 82962; 83735; 84100; 85025; 88300-TC; 88304-TC; 94760; 97116-GP; 97161-GP; J1644

== ENCOUNTER → 2017-05-06 | Day surgery (SDC) | payer OTHER ==
[2017-04-27 17:23] VITALS: BMI 19.9
[~2017-05-06] MED LIST changes: +BACITRACIN 15 GM TUBE TOPICAL OINTMENT ONE; +GENTAMICIN SO4 80 MG/2 ML VIAL ONE; +GLYCOPYRROLATE 0.2 MG/1 ML VIAL ONE; +LIDOCAINE HCL 2% JELLY (5 ML/TUBE) ONE; +MIDAZOLAM HCL 2 MG/2 ML SINGLE DOSE VIAL ONE; +ONDANSETRON 4 MG/2 ML VIAL IVPB PRN; +ONDANSETRON 4 MG/2 ML VIAL IVPUSH ONE; -ONDANSETRON 4 MG/2 ML VIAL IVPUSH PRN; +ONDANSETRON 4 MG/2 ML VIAL ONE; +PROPOFOL 20 ML ONE; +SODIUM CHLORIDE 0.9% P/F 10 ML VIAL IJ ONE; +SUCCINYLCHOLINE CHLORIDE 200 MG/10 ML VIAL ONE; +ceFAZolin SODIUM 1 GM VIAL ONE; +ePHEDrine SULFATE 50 MG/1 ML AMPULE ONE; +fentaNYL CITRATE 250 MCG/5 ML VIAL ONE
--- NOTE | 2017-05-06 18:30 | OP ---
Operative Note - Note: Operative Date: 05/06/17 Pre-Operative Diagnosis: right breast cancer Operation: revision of right breast reconstruction with capsulectomy and removal of implant Post-Operative Diagnosis: Same as Pre-op Surgeon: Philippe Landrum Anesthesia: General Drains & Tubes with Location: huan right breast Operative Report Dictated: Yes
[2017-05-06 22:07] VITALS: BP 87/52; PULSE 92; TEMP 98.1
--- NOTE | 2017-05-07 07:53 | OP ---
DATE OF OPERATION: 05/06/2017 TITLE OF PROCEDURE: Right revision of reconstructed breast with right-sided capsulectomy and right-sided removal of existing prosthesis. ATTENDING SURGEON: Philippe Landrum MD ANESTHESIA: General endotracheal anesthesia, Toi Gore MD. PREOPERATIVE DIAGNOSIS: Partial flap necrosis of the right breast reconstruction latissimus dorsi myocutaneous flap with asymmetry of reconstructed breasts, right-sided breast cancer status post mastectomy and radiation, deformity of reconstructed breast. The patient is marked in the holding area, awake and aware of all incisions and resulting scars. She is counseled on all the risks, benefits, and alternatives to the procedure, understands and agrees to proceed. A financial planning assistant is present for this discussion. The patient is given a gram of Ancef preoperatively. MAYANK hose and sequential compression stockings are applied. DESCRIPTION OF PROCEDURE: She is brought to the operating room, placed in supine position. Position is carefully checked by surgical and anesthesia teams. All padding and pressure point aids are used. The patient is prepped and draped. A timeout is called. Patient, procedure, side, and site are verified. At this point, the necrotic tissue on the right latissimus dorsi flap is excised. The necrotic tissue is entirely debrided. Hemostasis meticulously achieved. At this point, a capsulotomy is made at the inferolateral portion of the capsule. The prosthetic is removed. Using headlight and retraction, a capsulectomy is performed. Hemostasis is once again achieved, and the pocket is then irrigated with 3 L of pulse lavage normal saline and a liter of normal saline with 50,000 units of bacitracin. At this point, the flap is mobilized. It is incised along the border of the skin paddle roughly 100 degrees around the lateral border of the flap so that it could be rotated more inferiorly to fill the inferior pole that had been filled with the prosthetic. This portion of the flap is tacked to the inframammary fold with a series of interrupted 2-0 Vicryl suture. At this point, the skin is mobilized on the mastectomy skin, off of the pectoralis major muscle in order to achieve a primary closure laterally. A lateral Z-plasty is performed in order to redistribute tension laterally. This is closed primarily with a series of interrupted 2-0 nylon suture and interrupted skin mey. A size 10 flat IRVING drain is brought out the lateral extent of the incision and placed in the previous pocket from the implant capsule. Drain is secured with a 2-0 silk drain suture. The skin paddle from the latissimus dorsi flap is then re-inset into the skin defect of the mastectomy wound with a series of interrupted, buried, deep dermal 3-0 Monocryl suture, followed by a running subcuticular 3-0 Monocryl suture. Several 4-0 nylon sutures are used to perfect the closure. Drain is placed to bulb suction. All tissues appear pink and viable without any evidence of skin ischemia. The skin is then dressed with bacitracin, Xeroform, 4 x 4 gauze, ABD gauze, and a breast binder. Patient awoke from anesthesia, transferred to Recovery without complication. Mata [id number]
--- NOTE | 2017-05-12 15:08 | PATH ---
Surgical Pathology Report Patient Name: ARIES FELICIANO [facility]. Rec. #: [id number] /Age/Gender: 1950 (Age: 66) / F Account: [id number] Location: [facility] [place] AMBULATORY Taken: 05/06/2017 Received: 05/06/2017 Reported: 05/12/2017 Physicians: Philippe Landrum Specimen(s) Received A: RIGHT BREAST SKIN B: RIGHT BREAST CAPSULE C: RIGHT BREAST TISSUE TUBE FITTER Clinical History Right breast cancer Final Diagnosis A. SKIN, RIGHT BREAST, EXCISION: ULCERATED SKIN AND FIBROADIPOSE TISSUE SHOWING ACUTE NECROTIZING INFLAMMATION. B. CAPSULE, RIGHT BREAST, CAPSULECTOMY: FIBROUS CAPSULE. C. TISSUE TUBE FITTER, RIGHT BREAST, REMOVAL: TISSUE TUBE FITTER, DESCRIBED (GROSS EXAMINATION ONLY). Electronically Signed Xi Spain M.D. Gross Description A. Received in formalin labeled "right breast skin," is a 9.5 x 6.0 cm brown, irregular portion of skin excised to a depth of 1.5 cm. The epidermal surface displays a brown-black, ulcerated lesion. Sectioning reveals necrotic soft tissue. Stamping Operator sections are submitted in one cassette. B. Received in formalin labeled "right breast capsule," is a 4.0 x 3.0 x 1.1 cm aggregate of multiple portions of necrotic soft tissue. A delivery representative portion is submitted in one cassette. C. Received fresh labeled "right breast tissue insulation machine operator," is a 15.0 x 11.5 x 2.5 cm abraham foreign body, consistent with a breast tissue insulation machine operator. No soft tissue is present. No sections are submitted, gross only. 05/07/2017 [facility]05/07/2017
== END | disposition home or self-care (01) ==
LOC: FASU 12:52
PROVIDERS: ATTEND Plastic Surgery
PROC: 0HRT07Z Replacement of Right Breast with Autologous Tissue Substitute, Open Approach (ICD-10-PCS; 2017-05-06)
PROC: 0HPT0JZ Removal of Synthetic Substitute from Right Breast, Open Approach (ICD-10-PCS; principal; 2017-05-06 16:36)
DX: C50.811 Malignant neoplasm of overlapping sites of right female breast (principal); N64.1 Fat necrosis of breast; N65.1 Disproportion of reconstructed breast; Z92.3 Personal history of irradiation
CPT/HCPCS: 82962; 88300-TC; 88304-TC; 94760

== ENCOUNTER 2018-11-03 23:26 | Emergency (ER) | payer OTHER ==
[2018-11-03 23:33] VITALS: BMI 22.4
--- NOTE | 2018-11-04 00:36 | PDOC ---
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 The patient reports that she checked her bp at around 2000 and it was elevated, after which she took her regular metoprolol. Later on in the night she developed chest tightness around 8 /10 associated with nausea and shaking but not diaphoresis. She states the pain lasted for approx 30min and self resolved. She also reports headache that is generalized, similar to her normal headaches but more severe. She denies any shortness of breath, recent illness, abdominal pain, dysuria, hematuria, diarrhea, constipation. She has no other complaints. ROS GENERAL/CONSTITUTIONAL: No fever or chills. No weakness. HEAD, EYES, EARS, NOSE AND THROAT: No change in vision. No sore throat. CARDIOVASCULAR: + chest pain or No shortness of breath RESPIRATORY: No cough, wheezing, or hemoptysis. GASTROINTESTINAL: No nausea, vomiting, diarrhea or constipation. GENITOURINARY: No dysuria, frequency, or change in urination. MUSCULOSKELETAL: No joint or muscle swelling or pain. No neck or back pain. SKIN: No rash NEUROLOGIC: + headache, No vertigo, loss of consciousness, or change in strength /sensation. PE GENERAL: Awake, alert, and fully oriented, in no acute distress HEAD: No signs of trauma, normocephalic, atraumatic EYES: PERRLA, EOMI, sclera anicteric, conjunctiva clear ENT: oropharynx clear without exudates. Moist mucosa NECK: Normal ROM, supple LUNGS: No distress, speaks full sentences, clear to auscultation bilaterally HEART: Regular rate and rhythm, normal S1 and S2, no murmurs, rubs or gallops, peripheral pulses normal and equal bilaterally. ABDOMEN: Soft, nontender, normoactive bowel sounds. No guarding, no rebound. No masses EXTREMITIES : Normal inspection, Normal range of motion, no edema. No clubbing or cyanosis. NEUROLOGICAL: Cranial nerves II through XII grossly intact. Normal speech, no focal sensorimotor deficits SKIN: Warm, Dry, normal turgor, no rashes or lesions noted MDM DDX including but not limited to: r/o intracranial pathology including met to brain vs stroke consider acs vs pe W/U: - cbc, cmp, trop, ekg, cxr ED Course: case discussed with Radiology recommends nonemergent MRI brain w/ contrast Judit Houser, PGY2 Emergency Medicine 11/04/18 03:55 Past History - Past Medical History Allergies/Adverse Reactions: Allergies Allergy/AdvReac Type Severity Reaction Status Date / Time No Known Drug Allergies Allergy Verified 11/03/18 23:29 Home Medications: Ambulatory Orders Irbesartan [Avapro (Nf) -] 150 mg PO DAILY 09/28/12 Omeprazole [Prilosec (RX)] 20 mg PO DAILY 09/28/12 Citalopram Hydrobromide [Citalopram HBr] 20 mg PO DAILY 02/21/16 Multivitamins [Multivit ([facility] Formulary)] 1 tab PO DAILY 02/21/16 Metformin HCl [Glucophage] 1,000 mg PO BID 03/16/17 Metoprolol Succinate [Toprol XL -] 25 mg PO DAILY 03/16/17 Anemia: No (IN THE PAST) Asthma: No Cancer: Yes (RIGHT BREAST CANCER 2016) Cardiac Disorders: No CVA: No COPD: No CHF: No Dementia: No Diabetes: Yes GI Disorders: Yes (GERD) Disorders: No HTN: Yes Hypercholesterolemia: No Liver Disease: No Seizures: No Thyroid Disease: No - Surgical History Abdominal Surgery: No Appendectomy: Yes Cardiac Surgery: No Cholecystectomy: Yes Lung Surgery: No Neurologic Surgery: No Orthopedic Surgery: Yes (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) - Suicide/Smoking/Psychosocial Hx Smoking Status: Yes Smoking History: Current every day smoker Have you smoked in the past 12 months: Yes Number of Cigarettes Smoked Daily: 20 If you are a former smoker, when did you quit?: 02/07 Information on smoking cessation initiated: No Hx Alcohol Use: No Drug/Substance Use Hx: No Substance Use Type: None Hx Substance Use Treatment: No *Physical Exam - Vital Signs Last Vital Signs Temp Pulse Resp BP Pulse Ox 98 F 69 18 172/74 H 98 11/03/18 23:29 11/03/18 23:29 11/03/18 23:29 11/03/18 23:29 11/03/18 23:29 Vital Signs - Vital Signs #1 Blood Pressure: 116/83 MAP: 94 ED Treatment Course - LABORATORY CBC & Chemistry Diagram: 11/04/18 02:00 11/04/18 02:00 *DC/Admit/Observation/Transfer Diagnosis at time of Disposition: Headache, Hypertension, Atypical chest pain - Discharge Dispostion Disposition: HOME Condition at time of disposition: Stable Decision to Admit order: No - Referrals Referrals: Galo Lester RES [Primary Care Provider] - Myles Huynh MD [Staff Physician] - - Patient Instructions Printed Discharge Instructions: Essential Hypertension, DI for Atypical Chest Pain, DI for Headache Additional Instructions: You were seen in the ED for headache, high blood pressure and chest tightness Your labwork was unremarkable but your Head CT showed some brain changes that will require follow up MRI You have a referral for Neurology to follow up within 1 week Please also follow up with your Family Doctor within 1 week. Return to the ED immediately if you experience worsening pain or symptoms or loss of consciousness. - Post Discharge Activity
--- NOTE | 2018-11-04 00:38 | PDOC ---
Attending Attestation - Resident Resident Name: Judit Houser - ED Attending Attestation I have performed the following: I have examined & evaluated the patient, The case was reviewed & discussed with the resident, I agree w/resident's findings & plan - HPI HPI: 11/04/18 05:10 see resident hpi - Physicial Exam PE: 11/04/18 05:10 agree with resident exam - Medical Decision Making 11/04/18 05:10 67 yo female with metastatic cancer c/o chest discomfort , HICKEY and elevated BP on re evaluation pt feeling better and requesting d/c CT brain showed non acute changes, possibly post chemo labs and EKG unremarkable d/c home with outpatient primary care folllow up
[2018-11-04 02:13] LABS: BASO % 1.2 % (0-2.0); EOS % 2.3 % (0-4.5); HEMATOCRIT 33.3 % (32.4-45.2); HEMOGLOBIN 10.6 GM/dL (10.7-15.3); LYMPH % 45.6 % (8-40); MCHC 31.7 g/dl (32.0-36.0); MEAN CELL VOLUME 85.3 fl (80-96); MEAN PLT VOLUME 8.6 fl (7.5-11.1); MONO % 8.6 % (3.8-10.2); NEUT % 42.3 % (42.8-82.8); PLATELET COUNT 212 K/MM3 (134-434); RBC 3.91 M/mm3 (3.60-5.2); RDW 16.9 % (11.6-15.6); WHITE BLOOD COUNT 5.6 K/mm3 (4.0-10.0)
[2018-11-04 02:36] LABS: ALBUMIN 3.3 g/dl (3.4-5.0); BILIRUBIN,TOTAL 0.3 mg/dL (0.2-1); CALCIUM 8.7 mg/dL (8.5-10.1); CREATININE 0.6 mg/dL (0.55-1.3); N-TERMINAL BNP 137.3 pg/ml (5-125); POTASSIUM 4.3 mmol/L (3.5-5.1); TOT PROT 7.4 g/dl (6.4-8.2)
[2018-11-04 03:26] LABS: PH,URINE 7.5 (5.0-8.0); URINE APPEARANCE CLEAR; URINE BILIRUBIN NEGATIVE (NEGATIVE); URINE COLOR YELLOW; URINE GLUCOSE (UA) NEGATIVE (NEGATIVE); URINE KETONE NEGATIVE (NEGATIVE); URINE LEUK ESTERASE NEGATIVE (NEGATIVE); URINE NITRITE NEGATIVE (NEGATIVE); URINE PROTEIN NEGATIVE (NEGATIVE); URINE UROBILINOGEN 0.2 mg/dL (0.2-1.0)
[2018-11-04 05:02] VITALS: BP 139/87; PULSE 62; TEMP 99
--- NOTE | 2018-11-04 15:27 | EKG ---
Test Reason : Blood Pressure : / mmHG Vent. Rate : 055 BPM Atrial Rate : 055 BPM P-R Int : 122 ms QRS Dur : 080 ms QT Int : 410 ms P-R-T Axes : 035 044 072 degrees QTc Int : 392 ms SINUS BRADYCARDIA WITH SINUS ARRHYTHMIA NONSPECIFIC T WAVE ABNORMALITY ABNORMAL ECG WHEN COMPARED WITH ECG OF 28-SEP-2012 18:11, VENT. RATE HAS DECREASED BY 43 BPM Confirmed by REAL ALDRICH MD ([id number]) on 11/04/2018 3:27:09 PM Referred By: Confirmed By:REAL ALDRICH MD
== END 2018-11-04 04:45 | disposition home or self-care (01) ==
LOC: JER 23:26
DX: I10 Essential (primary) hypertension (principal); R07.89 Other chest pain; R51 Headache; F17.210 Nicotine dependence, cigarettes, uncomplicated; K21.9 Gastro-esophageal reflux disease without esophagitis; Z85.3 Personal history of malignant neoplasm of breast
CPT/HCPCS: 36415; 70450-TC; 71045-TC-FY; 80053; 81003; 82550; 83880; 84484; 85025; 87086; 93005; 93010; 99283-25